=== PATIENT | female | born 1935 | race Caucasian/White ===

== ENCOUNTER 2020-06-27 13:38 | Emergency (ER) | payer MEDICARE, SELFPAY ==
--- NOTE | ~2020-06-27 | CT_ITS ---
EXAMINATION: CT ABDOMEN AND PELVIS WITHOUT CONTRAST CLINICAL INFORMATION: Diarrhea. Assess for colitis COMPARISON: None TECHNIQUE: Multidetector volumetric imaging was performed from the superior aspect of the liver through the pubic symphysis. Sagittal and coronal reformatted images were obtained on the technologist's workstation. This CT examination was performed using dose optimization techniques as appropriate, variously including the following: *Automated exposure control *Adjustment of mA and/or kV according to patient size (this includes techniques or standardized protocols for targeted exams where dose is matched to indication/reason for exam; i.e. extremities or head) *Use of iterative reconstruction technique DLP: 498 mGy-cm FINDINGS: LUNG BASES: Minor bibasilar scarring/discoid atelectasis. LIVER, GALLBLADDER, AND BILIARY TREE: The liver is normal in size, shape, and attenuation. No focal hepatic lesion or biliary ductal dilatation is present. Numerous gallstones without acute inflammatory changes. PANCREAS: There is a coarse calcification in the pancreatic parenchyma along the course of the main pancreatic duct measuring 11 mm. Duct distal to this is dilated. Atrophy of the pancreatic tissues. No discrete mass lesion. No inflammatory changes. SPLEEN: Unremarkable. ADRENAL GLANDS: Unremarkable. KIDNEYS AND URETERS: Multiple renal cortical cysts and nonobstructing stones. Largest left midpole kidney laterally measuring up to 5.5 cm. No hydronephrosis. BLADDER: Unremarkable. GASTROINTESTINAL TRACT: Distal sigmoid colon and rectum is collapsed but appears relatively thick walled which is nonspecific and may be related to colitis. Infiltrating lesion not excluded. No obstruction. ABDOMINAL WALL: No significant hernia is appreciated. LYMPH NODES: Normal. VASCULAR: Unremarkable. PELVIC VISCERA: Pelvic organs appear to be surgically absent. OSSEOUS STRUCTURES: Unremarkable. CT/CT abdomen pelvis wo con IMPRESSION: Findings of nonspecific colitis favored distal colon as above. Follow-up recommended to exclude an underlying lesion. Incidental findings as above.
--- NOTE | ~2020-06-27 | XR_ITS ---
EXAMINATION: XR CHEST CLINICAL INFORMATION: COVID COMPARISON: None TECHNIQUE: Frontal view of the chest was obtained. FINDINGS: Lungs are clear. No pleural effusion or pneumothorax. Normal heart size. Aorta is atherosclerotic. Calcified left breast implant. No acute or suspicious osseous abnormalities. XR/XR chest 1V IMPRESSION: No acute findings.
--- NOTE | 2020-06-27 13:48 | ED_ITS ---
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 stating she needed to get checked out, she takes clonazepam and has her Rx at home, she denies need for rehab MD Complaint: generalized weakness and lack of energy Onset (ago): week(s) (2) Duration: constant Location: generalized Migration: none Severity: mild Relieving factors: none Exacerbating factors: other (life stressors) Context: other (son is critically ill with COVID at [facility]) Associated symptoms: loss of appetite and other (diarrhea or loose stools when she does eat) Related Data Previous Rx's Medication Instructions Recorded simvastatin 40 mg tablet 40 mg PO BEDTIME #30 tab 06/15/20 meclizine 25 mg tablet 25 mg PO DAILY PRN #30 tab 06/21/20 Allergies Allergy/AdvReac Type Severity Reaction Status Date / Time Sulfa (Sulfonamide Allergy Unknown unknown Verified 02/16/20 12:33 Antibiotics) sulfamethoxazole Allergy Unknown ANGIOEDEMA Verified 02/16/20 12:33 [From BACTRIM] trimethoprim [From BACTRIM] Allergy Unknown ANGIOEDEMA Verified 02/16/20 12:33 Review of Systems Review of Systems: Constitutional : No Fever, No Chills, pos malaise ENT/Mouth : No Ear Pain, No Nasal Congestion, No sore throat Eyes: No Eye Pain, No Swelling, No Redness Cardiovascular : No Chest Pain, No SOB Respiratory : No Cough, No Sputum, No Dyspnea Gastrointestinal : No Nausea, No Vomiting, pos Diarrhea, No Hematochezia, No Melena Genitourinary : No Dysuria, No Urinary Frequency, No Hematuria Musculoskeletal : No Myalgias Skin : No Skin Lesions, No rash Neuro : No Weakness, No Numbness, No Paresthesias, No Dizziness, No Headache Psych : positive Anxiety, positive Depression, no SI/HI Heme/Lymph: No Lymphadenopathy Endocrine : No Polyuria, No Polydipsia All other systems reviewed and are negative [facility] Past Medical History Attestation statement: The following information was validated with the patient. Medical History Anxiety Dyslipidemia Orthostatic tremor Surgical History History of arthroscopy of knee History of breast implant History of cataract surgery History of eye surgery History of hysterectomy History of mastectomy History of parathyroid surgery History of tonsillectomy and adenoidectomy S/P thyroid biopsy Family History Family History (Updated 02/16/20 @ 12:49 by Kate Hu, RMA, CERTIFIED TECHNICIAN SPECIALIST) Father HTN (hypertension) Mother HTN (hypertension) Sister Breast cancer Son Bowel cancer Maternal Aunt Multiple sclerosis Paternal Aunt Diabetes mellitus Neuropathy Amputation leg, bilat Social History Social History (Updated 06/27/20 @ 13:59 by Alyssa Barker DO) Alcohol intake: never Smoking Status: Never smoker Use of substances other than those prescribed or required for medical reasons: No Advance Directives: Yes Advance Directives Information Provided: Yes Advance Directives on File: No Physical Exam Vital Signs: Vital Signs: Last Vital Signs Temp 98.5 F 06/27/20 14:05 Pulse 88 06/27/20 14:05 Resp 16 06/27/20 14:05 BP 177/73 H 06/27/20 14:05 Pulse Ox 93 06/27/20 14:05 Body Mass Index 25.6 Appearance: Alert. Oriented X3. No acute distress. Eyes: Pupils equal, round and reactive to light. ENT: Pharynx normal. Neck: Normal inspection. Neck supple. CVS: Normal heart rate and rhythm. Pulses normal. Respiratory: No respiratory distress. Breath sounds normal. Abdomen: Soft and nontender. Skin: Skin warm and dry. Normal skin color. Normal skin turgor. Extremities: No lower extremity edema. No calf ttp Neuro: Oriented X 3. No motor deficit. No sensory deficit. Course Course Course Narrative: + COVID, no hypoxia no respiratory distress likely caught COVID from son who was just diagnosed 9 days ago when he arrived to [facility] after an accident will replete Mag and PO potassium, gentle 1L of fluid over 1 hour anticipate possible DC from home once improved from resuscitation and lyte replacement no WBC count, no abdominal pain, doubt bacterial colitis will hold off on antibiotics at this time I think the patient has good resources at home and does not need CARE team signed out pending further workup, resuscitation and O2 ambulation trial MDM - Weakness MDM Narrative Medical decision making narrative: 84 yo female with recent significant life stressor regarding her son, family called due to concerns for anxiety, FTT not eating and having loose stools x 2 weeks, the patient states she is fine, she states it is just stress, labs CT scan for colitis, CARE team consult Lab Data Result diagrams: 06/27/20 14:25 06/27/20 14:25 Labs: Lab Results 06/27/20 06/27/20 06/27/20 Range/Units 14:25 14:25 14:25 WBC 2.8 L (4.8-10.8) X10*3/uL RBC 4.94 (4.20-5.50) X10*6/uL Hgb 13.9 (12.0-16.0) g/dl Hct 42.2 (37-47) % MCV 85.4 (80-98) fL MCH 28.1 (27.0-33.0) pg MCHC 32.9 (31.0-35.0) g/dl RDW 14.1 (11.0-16.0) % Plt Count 108 L (160-400) X10*3/uL MPV 11.2 (9.4-12.3) fL Immature Gran % (Auto) 0.0 (0.0-0.4) % Neut % (Auto) 78.2 H (45-73) % Lymph % (Auto) 16.2 L (20-40) % [place] % (Auto) 5.6 (2-11) % Eos % (Auto) 0.0 (0-4) % Baso % (Auto) 0.0 (0-2) % Lymph # (Auto) 0.5 L (1.2-4.9) X10*3/uL [place] # (Auto) 0.2 (0.1-1.2) X10*3/uL Eos # (Auto) 0.0 (0.0-0.4) X10*3/uL Baso # (Auto) 0.0 (0.0-0.2) X10*3/uL Abs Immat Gran (auto) 0.00 (0.00-0.03) X10*3/uL Absolute Neuts (auto) 2.2 (2.0-8.3) X10*3/uL Absolute Nucleated RBC 0.000 (0.0-0.012) X10*3/uL Nucleated RBC % (auto) 0.0 (0.0-0.2) /100WBC Smear Tech's Comments VERIFIED Hold Blue Top SEE NOTE Sodium 138 (135-145) mmol/L Potassium 3.0 L (3.3-5.1) mmol/L Chloride 101 (96-108) mmol/L Carbon Dioxide 24 (22-29) mmol/L Anion Gap 16 (12-20) BUN 26 H (9-16) mg/dL Creatinine 1.42 H (0.5-1.4) mg/dL Estim Creat Clear Calc 25.3 Estimated GFR 35 Random Glucose 101 (60-115) mg/dL Calcium 8.0 L (8.4-10.2) mg/dL Magnesium 1.5 L (1.6-2.6) mg/dL Total Bilirubin 0.8 (0.0-1.0) mg/dL Direct Bilirubin 0.3 (0.0-0.5) mg/dL AST 32 H (5-31) U/L ALT 15 (0-31) U/L Alkaline Phosphatase 67 (39-117) U/L Total Protein 6.6 (6.5-8.0) g/dL Albumin 3.7 (3.5-5.0) g/dL Lipase 34 (8-78) U/L COVID-19 (NEELAM) (Negative) COVID-19 Clin Com 06/27/20 Range/Units 14:25 WBC (4.8-10.8) X10*3/uL RBC (4.20-5.50) X10*6/uL Hgb (12.0-16.0) g/dl Hct (37-47) % MCV (80-98) fL MCH (27.0-33.0) pg MCHC (31.0-35.0) g/dl RDW (11.0-16.0) % Plt Count (160-400) X10*3/uL MPV (9.4-12.3) fL Immature Gran % (Auto) (0.0-0.4) % Neut % (Auto) (45-73) % Lymph % (Auto) (20-40) % [place] % (Auto) (2-11) % Eos % (Auto) (0-4) % Baso % (Auto) (0-2) % Lymph # (Auto) (1.2-4.9) X10*3/uL [place] # (Auto) (0.1-1.2) X10*3/uL Eos # (Auto) (0.0-0.4) X10*3/uL Baso # (Auto) (0.0-0.2) X10*3/uL Abs Immat Gran (auto) (0.00-0.03) X10*3/uL Absolute Neuts (auto) (2.0-8.3) X10*3/uL Absolute Nucleated RBC (0.0-0.012) X10*3/uL Nucleated RBC % (auto) (0.0-0.2) /100WBC Smear Tech's Comments Hold Blue Top Sodium (135-145) mmol/L Potassium (3.3-5.1) mmol/L Chloride (96-108) mmol/L Carbon Dioxide (22-29) mmol/L Anion Gap (12-20) BUN (9-16) mg/dL Creatinine (0.5-1.4) mg/dL Estim Creat Clear Calc Estimated GFR Random Glucose (60-115) mg/dL Calcium (8.4-10.2) mg/dL Magnesium (1.6-2.6) mg/dL Total Bilirubin (0.0-1.0) mg/dL Direct Bilirubin (0.0-0.5) mg/dL AST (5-31) U/L ALT (0-31) U/L Alkaline Phosphatase (39-117) U/L Total Protein (6.5-8.0) g/dL Albumin (3.5-5.0) g/dL Lipase (8-78) U/L COVID-19 (NEELAM) Positive A (Negative) COVID-19 Clin Com See Note Discharge Plan Discharge Clinical Impression: Hypomagnesemia, Acute hypokalemia, Acute renal insufficiency, COVID-19, Dehydration Instructions: Dehydration (ED), COVID-19 (Coronavirus Disease 2019) (ED) Additional Instructions: return to ED for any worsening symptoms or concerns replenished with gentle IVF as well as corrected her potassium and magnesium - have her kidney function rechecked in 2 days Prescriptions: No Action simvastatin 40 mg tablet 40 mg PO BEDTIME Qty: 30 RF: 1 meclizine 25 mg tablet 25 mg PO DAILY PRN (Reason: dizziness) Qty: 30 RF: 0 Referrals: Marsha Peña MD [Primary Care Provider] - 2 days
[2020-06-27 14:05] VITALS: BP 177/73; PULSE 88; RESP 16; TEMP 36.9; O2SAT 93; BMI 25.6
[2020-06-27 14:41] LABS: MANUAL DIFF FLAG SCAN; PLT CLUMP 1; SCAN SMEAR FLAG 1
[2020-06-27 14:43] LABS: Hematocrit 42.2 % (37-47); Hemoglobin 13.9 g/dl (12.0-16.0); Lymphocytes Absolute Auto 0.5 X10*3/uL (1.2-4.9); Lymphocytes Percent Auto 16.2 % (20-40); Mean Corpuscular HGB Conc 32.9 g/dl (31.0-35.0); Mean Corpuscular Hemoglobin 28.1 pg (27.0-33.0); Mean Corpuscular Volume 85.4 fL (80-98); Mean Platelet Volume 11.2 fL (9.4-12.3); Monocytes Absolute Auto 0.2 X10*3/uL (0.1-1.2); Monocytes Percent Auto 5.6 % (2-11); Neutrophils Absolute Auto 2.2 X10*3/uL (2.0-8.3); Neutrophils Percent Auto 78.2 % (45-73); Platelet Count 108 X10*3/uL (160-400); Red Blood Count 4.94 X10*6/uL (4.20-5.50); Red Cell Distribution Width 14.1 % (11.0-16.0); White Blood Count 2.8 X10*3/uL (4.8-10.8)
[2020-06-27 14:56] LABS: COVID-19 Test Positive (Negative)
[2020-06-27 15:07] LABS: Alanine Aminotransferase 15 U/L (0-31); Albumin Level 3.7 g/dL (3.5-5.0); Alkaline Phosphatase 67 U/L (39-117); Anion Gap 16 (12-20); Aspartate Amino Transferase 32 U/L (5-31); Bilirubin Direct 0.3 mg/dL (0.0-0.5); Bilirubin Total 0.8 mg/dL (0.0-1.0); Blood Urea Nitrogen 26 mg/dL (9-16); Carbon Dioxide 24 mmol/L (22-29); Chloride 101 mmol/L (96-108); Creatinine Clr Calc Pharmacy 25.3; Estimated Glomerular Filt Rate 35; Glucose Random 101 mg/dL (60-115); Lipase 34 U/L (8-78); Magnesium 1.5 mg/dL (1.6-2.6); Sodium 138 mmol/L (135-145); Total Protein 6.6 g/dL (6.5-8.0)
[2020-06-27 15:10] LABS: SLIDE REVIEW VERIFIED
[2020-06-27] MEDS: 0.9 % Sodium Chloride 1,000 ML 999 ML IVCONT (15:39)
[2020-06-27] MEDS: Potassium Chloride ER 20 MEQ TAB.ER.PRT 40 MEQ PO (15:40)
[2020-06-27] MEDS: Magnesium Sulfate/H2O 2 GM/50 ML PIGGYBACK IV (15:40)
--- NOTE | 2020-06-27 17:06 | MHC.CARE ---
CARE team consult placed for pt whose family had concerns that pt was failing to thrive. Come to find out, pt is covid-19 positive, and would explain the concern re: pt's presentation. Discussed with ED provider who agreed that a consult is not necessary at this time. CARE team available for support if needed.
[2020-06-27 18:00] VITALS: O2SAT 95
[2020-06-27 19:00] LABS: Glucose Urine UA NEG (NEG); Leukocyte Esterase Urine 1+ (NEG); Nitrite Urine POS (NEG); PH 5.5 (5.0-8.0); Specific Gravity - Urine 1.025 (1.005-1.025); UACC Culture Trigger YES; Urine Blood 1+ (NEG); Urine Ketones NEG (NEG); Urine Protein TRACE MG/DL (NEG-TRACE)
--- NOTE | 2020-06-27 19:01 | PC.NURSE ---
Pt ambulated to bathroom with assistance, very weak, unsteady on feet. Spo2 stayed in 93-95% range. Pt had diarrhea in bathroom after providing urine sample. aware. Will continue to monitor.
[2020-06-27 19:04] LABS: Appearance Urine HAZY; Color Urine YELLOW
[2020-06-27 19:19] LABS: Bacteria Urine 4+ /LPF; RBC Urine 0-2 /HPF (0); Squamous Epithelial Cell Urine 1+ /LPF
--- NOTE | 2020-06-27 19:25 | PC.NURSE ---
SPOKE WITH DAUGHTER ROQUE. WILLING TO TAKE PATIENT TO HER HOUSE IF SHE IS WILLING TO GO. DISCUSSED WITH PATIENT THE OPTIONS AND IS WILLING TO GO TO DAUGHTERS HOUSE. DR ALCARAZ AWARE.
[2020-06-27 20:27] LABS: Lactic Acid 1.3 mmol/L (0.5-2.0)
[2020-06-27] MEDS: cefTRIAXone sodium 1 GM in 0.9 % Sodium Chloride 50 ML IV (20:29)
--- NOTE | 2020-06-27 20:48 | ED.GENADULT ---
HPI - General Adult General Chief complaint: General Medical Stated complaint: failure to thrive Time Seen by Provider: 06/27/20 13:45 Source: patient and EMS Mode of arrival: EMS Limitations: no limitations Related Data Home Medications Medication Instructions Recorded Confirmed amlodipine 10 mg PO DAILY 06/30/20 06/30/20 clonazepam 0.25 mg PO BID 06/30/20 06/30/20 metoprolol succinate 100 mg PO DAILY 06/30/20 06/30/20 Previous Rx's Medication Instructions Recorded simvastatin 40 mg tablet 40 mg PO BEDTIME #30 tab 06/15/20 meclizine 25 mg tablet 25 mg PO DAILY PRN #30 tab 06/21/20 loperamide [Imodium A-D] 2 mg PO Q8H PRN #20 tab 06/27/20 Allergies Allergy/AdvReac Type Severity Reaction Status Date / Time Sulfa (Sulfonamide Allergy Unknown unknown Verified 06/30/20 17:02 Antibiotics) sulfamethoxazole Allergy Unknown ANGIOEDEMA Verified 06/30/20 17:02 [From BACTRIM] trimethoprim [From BACTRIM] Allergy Unknown ANGIOEDEMA Verified 06/30/20 17:02 [facility] Past Medical History Medical History (Updated 07/14/20 @ 00:01 by Terrie Crowley) Anxiety Dyslipidemia Orthostatic tremor Toxic encephalopathy Surgical History History of arthroscopy of knee History of breast implant History of cataract surgery History of eye surgery History of hysterectomy History of mastectomy History of parathyroid surgery History of tonsillectomy and adenoidectomy S/P thyroid biopsy Family History Family History Father HTN (hypertension) Mother HTN (hypertension) Sister Breast cancer Son Bowel cancer Maternal Aunt Multiple sclerosis Paternal Aunt Diabetes mellitus Neuropathy Amputation leg, bilat Social History Social History Household Members: Family Housing: House Do you presently have visiting nurse or other home services: No Alcohol intake: never Second Hand Smoke Exposure: No service: No Current occupational status: retired Physical Exam Vital Signs: Vital Signs: Last Vital Signs Temp 98.5 F 06/27/20 14:05 Pulse 88 06/27/20 14:05 Resp 16 06/27/20 14:05 BP 177/73 H 06/27/20 14:05 Pulse Ox 95 06/27/20 18:00 Body Mass Index 25.6 Medical Decision Making Lab Data Result diagrams: 06/27/20 14:25 06/27/20 14:25 Labs: Lab Results 06/27/20 06/27/20 06/27/20 Range/Units 14:25 14:25 14:25 WBC 2.8 L (4.8-10.8) X10*3/uL RBC 4.94 (4.20-5.50) X10*6/uL Hgb 13.9 (12.0-16.0) g/dl Hct 42.2 (37-47) % MCV 85.4 (80-98) fL MCH 28.1 (27.0-33.0) pg MCHC 32.9 (31.0-35.0) g/dl RDW 14.1 (11.0-16.0) % Plt Count 108 L (160-400) X10*3/uL MPV 11.2 (9.4-12.3) fL Immature Gran % (Auto) 0.0 (0.0-0.4) % Neut % (Auto) 78.2 H (45-73) % Lymph % (Auto) 16.2 L (20-40) % [place] % (Auto) 5.6 (2-11) % Eos % (Auto) 0.0 (0-4) % Baso % (Auto) 0.0 (0-2) % Lymph # (Auto) 0.5 L (1.2-4.9) X10*3/uL [place] # (Auto) 0.2 (0.1-1.2) X10*3/uL Eos # (Auto) 0.0 (0.0-0.4) X10*3/uL Baso # (Auto) 0.0 (0.0-0.2) X10*3/uL Abs Immat Gran (auto) 0.00 (0.00-0.03) X10*3/uL Absolute Neuts (auto) 2.2 (2.0-8.3) X10*3/uL Absolute Nucleated RBC 0.000 (0.0-0.012) X10*3/uL Nucleated RBC % (auto) 0.0 (0.0-0.2) /100WBC Smear Tech's Comments VERIFIED Hold Blue Top SEE NOTE Sodium 138 (135-145) mmol/L Potassium 3.0 L (3.3-5.1) mmol/L Chloride 101 (96-108) mmol/L Carbon Dioxide 24 (22-29) mmol/L Anion Gap 16 (12-20) BUN 26 H (9-16) mg/dL Creatinine 1.42 H (0.5-1.4) mg/dL Estim Creat Clear Calc 25.3 Estimated GFR 35 Random Glucose 101 (60-115) mg/dL Lactic Acid (0.5-2.0) mmol/L Calcium 8.0 L (8.4-10.2) mg/dL Magnesium 1.5 L (1.6-2.6) mg/dL Total Bilirubin 0.8 (0.0-1.0) mg/dL Direct Bilirubin 0.3 (0.0-0.5) mg/dL AST 32 H (5-31) U/L ALT 15 (0-31) U/L Alkaline Phosphatase 67 (39-117) U/L Total Protein 6.6 (6.5-8.0) g/dL Albumin 3.7 (3.5-5.0) g/dL Lipase 34 (8-78) U/L Urine Color Urine Appearance Urine pH (5.0-8.0) Ur Specific [place] (1.005-1.025) Urine Protein (NEG-TRACE) MG/DL Urine Glucose (UA) (NEG) MG/DL Urine Ketones (NEG) MG/DL Urine Blood (NEG) Urine Nitrite (NEG) Ur Leukocyte Esterase (NEG) Urine RBC (0) /HPF Urine WBC (0-4) /HPF Ur Squamous Epith Cells /LPF Urine Bacteria /LPF COVID-19 (NEELAM) (Negative) COVID-19 Clin Com 06/27/20 06/27/20 06/27/20 Range/Units 14:25 18:45 19:47 WBC (4.8-10.8) X10*3/uL RBC (4.20-5.50) X10*6/uL Hgb (12.0-16.0) g/dl Hct (37-47) % MCV (80-98) fL MCH (27.0-33.0) pg MCHC (31.0-35.0) g/dl RDW (11.0-16.0) % Plt Count (160-400) X10*3/uL MPV (9.4-12.3) fL Immature Gran % (Auto) (0.0-0.4) % Neut % (Auto) (45-73) % Lymph % (Auto) (20-40) % [place] % (Auto) (2-11) % Eos % (Auto) (0-4) % Baso % (Auto) (0-2) % Lymph # (Auto) (1.2-4.9) X10*3/uL [place] # (Auto) (0.1-1.2) X10*3/uL Eos # (Auto) (0.0-0.4) X10*3/uL Baso # (Auto) (0.0-0.2) X10*3/uL Abs Immat Gran (auto) (0.00-0.03) X10*3/uL Absolute Neuts (auto) (2.0-8.3) X10*3/uL Absolute Nucleated RBC (0.0-0.012) X10*3/uL Nucleated RBC % (auto) (0.0-0.2) /100WBC Smear Tech's Comments Hold Blue Top Sodium (135-145) mmol/L Potassium (3.3-5.1) mmol/L Chloride (96-108) mmol/L Carbon Dioxide (22-29) mmol/L Anion Gap (12-20) BUN (9-16) mg/dL Creatinine (0.5-1.4) mg/dL Estim Creat Clear Calc Estimated GFR Random Glucose (60-115) mg/dL Lactic Acid 1.3 (0.5-2.0) mmol/L Calcium (8.4-10.2) mg/dL Magnesium (1.6-2.6) mg/dL Total Bilirubin (0.0-1.0) mg/dL Direct Bilirubin (0.0-0.5) mg/dL AST (5-31) U/L ALT (0-31) U/L Alkaline Phosphatase (39-117) U/L Total Protein (6.5-8.0) g/dL Albumin (3.5-5.0) g/dL Lipase (8-78) U/L Urine Color YELLOW Urine Appearance HAZY Urine pH 5.5 (5.0-8.0) Ur Specific [place] 1.025 (1.005-1.025) Urine Protein TRACE (NEG-TRACE) MG/DL Urine Glucose (UA) NEG (NEG) MG/DL Urine Ketones NEG (NEG) MG/DL Urine Blood 1+ H (NEG) Urine Nitrite POS H (NEG) Ur Leukocyte Esterase 1+ H (NEG) Urine RBC 0-2 (0) /HPF Urine WBC 15-29 H (0-4) /HPF Ur Squamous Epith Cells 1+ /LPF Urine Bacteria 4+ /LPF COVID-19 (NEELAM) Positive A (Negative) COVID-19 Clin Com See Note Discharge Plan Discharge Clinical Impression: Hypomagnesemia, Acute hypokalemia, Acute renal insufficiency, COVID-19, Dehydration, Acute UTI, Chronic diarrhea Patient Disposition: Home, Self-Care Instructions: Dehydration (ED), COVID-19 (Coronavirus Disease 2019) (ED) Additional Instructions: return to ED for any worsening symptoms or concerns or increase Short of Breath Take antibiotic as prescribed for UTI Take Imodium after every loose bowel movement maximum not more than 3 tablets a day Drink plenty of fluids - have her kidney function rechecked in 2 days Prescriptions: New loperamide [Imodium A-D] 2 mg tablet 2 mg PO Q8H PRN (Reason: loose stool) Qty: 20 RF: 0 No Action simvastatin 40 mg tablet 40 mg PO BEDTIME Qty: 30 RF: 1 meclizine 25 mg tablet 25 mg PO DAILY PRN (Reason: dizziness) Qty: 30 RF: 0 metoprolol succinate 100 mg Tablet Extended Release 24 Hr 100 mg PO DAILY RF: 0 amlodipine 10 mg Tablet 10 mg PO DAILY RF: 0 clonazepam 0.25 mg Tablet,Disintegrating 0.25 mg PO BID RF: 0 Referrals: Marsha Peña MD [Primary Care Provider] - 2 days Interventions: ED Discharge Assessment Last Done: 06/27/20 23:02 Discharge Date/Time: 06/27/20 23:03
--- NOTE | 2020-06-27 20:54 | PC.NURSE ---
CALLED DAUGHTER LEFT MESSAGE FOR DISCHARGE.
== END 2020-06-27 23:03 | disposition home or self-care (01) ==
PROVIDERS: Internal Medicine; Emergency Provider Emergency Medicine; PCP Internal Medicine
DX: U07.1 COVID-19 (principal); R62.7 Adult failure to thrive; E83.42 Hypomagnesemia; E87.6 Hypokalemia; N28.9 Disorder of kidney and ureter, unspecified; E86.0 Dehydration; Z79.899 Other long term (current) drug therapy
CPT/HCPCS: 36415; 71045; 74176; 80048; 80076; 81001; 81003; 83605; 83690; 83735; 85025; 87040; 87086; 87088; 87186; 87635; 96360; 96361; 99284; 99285; J0696; J3475

== ENCOUNTER 2020-06-30 16:33 | Inpatient (IN) | payer MEDICARE, SELFPAY ==
--- NOTE | ~2020-06-30 | CT_ITS ---
EXAMINATION: CT HEAD WITHOUT CONTRAST CLINICAL INFORMATION: Confusion. COMPARISON: None available. TECHNIQUE: Contiguous axial imaging was performed from the skull base to vertex without intravenous administration of contrast. This CT examination was performed using dose optimization techniques as appropriate, variously including the following: *Automated exposure control. *Adjustment of mA and/or kV according to patient size (this includes techniques or standardized protocols for targeted exams where dose is matched to indication/reason for exam; i.e. extremities or head). *Use of iterative reconstruction technique. DLP: 638 mGy-cm FINDINGS: There is no evidence of acute intracranial hemorrhage or edematous territorial infarction. Confluent hypoattenuation in the periventricular and deep white matter. Turner-white matter differentiation is preserved. The ventricles are normal in size and configuration. No evidence for obstructive hydrocephalus. No abnormal mass effect or midline shift. No extra-axial fluid collections. Calcific atherosclerotic disease of the intracranial internal carotid and vertebral arteries. No hyperdense vessel sign. No acute soft tissue or osseous abnormalities. Mild mucosal thickening of the paranasal sinuses. The mastoid air cells and middle ear cavities are clear. Bilateral lens extractions. CT/CT head/brain wo con IMPRESSION: 1. No evidence of acute intracranial hemorrhage or edematous territorial infarction. 2. 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
--- NOTE | ~2020-06-30 | CT_ITS ---
EXAMINATION: CT ABDOMEN AND PELVIS WITHOUT CONTRAST CLINICAL INFORMATION: Abdominal pain COMPARISON: June 27, 2020 TECHNIQUE: Multidetector volumetric imaging was performed from the superior aspect of the liver through the pubic symphysis. Sagittal and coronal reformatted images were obtained on the technologist's workstation. This CT examination was performed using dose optimization techniques as appropriate, variously including the following: *Automated exposure control *Adjustment of mA and/or kV according to patient size (this includes techniques or standardized protocols for targeted exams where dose is matched to indication/reason for exam; i.e. extremities or head) *Use of iterative reconstruction technique DLP: 682 mGy-cm FINDINGS: LUNG BASES: There is breathing artifact present limiting evaluation. There is bibasilar disease present which may be related to atelectasis however pneumonitis cannot be excluded. Disease may be acute or chronic. No pleural or pericardial effusion. Aortic and mitral annulus calcification seen as well as coronary artery calcification. Left breast implant noted with calcified capsule. LIVER, GALLBLADDER, AND BILIARY TREE: The liver is normal in size, shape, and attenuation. No focal hepatic lesion or biliary ductal dilatation is present. Cholelithiasis is noted without evidence of acute cholecystitis. PANCREAS: Unremarkable. SPLEEN: Unremarkable. ADRENAL GLANDS: Unremarkable. KIDNEYS AND URETERS: There are bilateral renal cysts present largest within the left kidney measuring 5.2 cm in diameter. No obstructive uropathy. A few renal calculi are seen but which appear to be vascular in nature. BLADDER: Distended and unremarkable. GASTROINTESTINAL TRACT: No dilated loops of large or small bowel are evident. No free air or free fluid is seen. No definite colonic wall thickening is appreciated no significant pericolonic inflammatory streaking is seen however there is motion artifact present which can obscure this. ABDOMINAL WALL: No significant hernia is appreciated. LYMPH NODES: No lymphadenopathy appreciated. VASCULAR: There is prominent aortoiliac calcified plaque present as well as calcification of the visceral vessels. No abdominal aortic aneurysm. PELVIC VISCERA: Unremarkable. OSSEOUS STRUCTURES: There is osteopenia visualized bones. No suspicious destructive bony lesion identified. CT/CT abdomen pelvis wo con IMPRESSION: Bibasilar lung disease which may be acute or chronic. Cholelithiasis without evidence of acute cholecystitis. No evidence of ileus or obstruction of bowel. No free air or free fluid. No definite evidence of colitis however there is motion artifact present which limits this evaluation.
--- NOTE | ~2020-06-30 | CT_ITS ---
EXAMINATION: CT ANGIOGRAM OF THE CHEST WITH AND WITHOUT CONTRAST (CT PULMONARY ANGIOGRAM FOR PE) CLINICAL INFORMATION: Reason for Exam covid 19 with hypoxia COMPARISON: Chest x-ray earlier today TECHNIQUE: Prior to contrast administration, noncontrast localization images were obtained. Subsequently, multidetector volumetric imaging was performed from the thoracic inlet to below the diaphragms following the administration of 54 mL Omnipaque 350 intravenous contrast. No contrast reaction reported Sagittal, coronal, and MIP oblique sagittal reformatted images were obtained on the CT workstation, uploaded to PACS, and reviewed. This CT examination was performed using dose optimization techniques as appropriate, variously including the following: *Automated exposure control *Adjustment of mA and/or kV according to patient size (this includes techniques or standardized protocols for targeted exams where dose is matched to indication/reason for exam; i.e. extremities or head) *Use of iterative reconstruction technique Total exam dose-length product 220 mGy-cm FINDINGS: The heart is normal in size. Coronary artery calcifications are present. No pericardial effusion. No pulmonary arterial filling defect to suggest pulmonary embolus. Nonaneurysmal thoracic aorta which demonstrates severe calcified and noncalcified disease. No gross mediastinal lymphadenopathy. Left thyroid nodule. Partially visualized peripherally calcified left breast prosthesis. The right breast is surgically absent. Central airways are patent. Lungs are adequately aerated. Mild to moderate emphysematous changes are noted. There are scattered subpleural reticular and groundglass densities noted particularly within the lower lobes. Dependent atelectasis is also appreciated. No pleural effusion or pneumothorax. No large focal mass. Visualized portion of the upper abdomen are grossly unremarkable. Diffuse osteopenia with scoliotic and severe degenerative changes of the spine. CT/CT angio chest PE protocol IMPRESSION: -No pulmonary embolism. -Lung findings consistent with Covid pneumonia. VTE: negative
--- NOTE | ~2020-06-30 | XR_ITS ---
EXAMINATION: XR CHEST CLINICAL INFORMATION: Covid positive COMPARISON: Chest x-ray 06/27/2020 TECHNIQUE: Frontal portable view of the chest was obtained. 5:27 PM FINDINGS: Elevated right diaphragm compared to left. Linear atelectasis above the right diaphragm. Gas filled colonic hepatic flexure under the right diaphragm. Partially calcified left breast implant. Heart size is prominent. There are calcifications of thoracic aorta. No pulmonary vascular congestion. No focal consolidation. Multilevel degenerative spondylosis spine. There is degenerative change of the acromioclavicular joints of both shoulders. XR/XR chest 1V IMPRESSION: No acute change of chest.
--- NOTE | 2020-06-30 08:30 | ECG_ITS ---
Test Reason : HYPOXIA Blood Pressure : / mmHG Vent. Rate : 085 BPM Atrial Rate : 085 BPM P-R Int : 146 ms QRS Dur : 120 ms QT Int : 420 ms P-R-T Axes : 082 -33 003 degrees QTc Int : 499 ms Sinus rhythm with occasional Premature ventricular complexes Left axis deviation Right bundle branch block Minimal voltage criteria for LVH, may be normal variant Abnormal ECG No previous ECGs available Referred By: Gibson Sampson Electronically Signed By:Pio Ledesma
[2020-06-30 16:43] VITALS: BP 160/88; BP 186/74; PULSE 69; PULSE 89; RESP 16; TEMP 38.6; O2SAT 85; O2SAT 92; BMI 19.2
--- NOTE | 2020-06-30 16:48 | ED_ITS ---
HPI - General Adult General Chief complaint: Fever Stated complaint: RT EAR PAIN,+COVID Time Seen by Provider: 06/30/20 16:47 Source: patient and EMS Mode of arrival: EMS Limitations: no limitations History of Present Illness HPI narrative: Patient with hx of hypertension anxiety was seen here on 06/27 for weakness was positive for COVID also had slight UTI discharged on Ceftin comes back for nonspecific complaints complaining of chronic left ear pain than saying that her primary care doctor sent her here on arrival she was saturating 89% at room air .patient denies any shortness of breath or cough patient took only 1 dose of Ceftin at home. But received 1 g of Rocephin in the ER on 06/27 patient slightly confused looks weak per family patient is not eating and sleeping all the time Related Data Home Medications Medication Instructions Recorded Confirmed amlodipine 10 mg PO DAILY 06/30/20 06/30/20 clonazepam 0.25 mg PO BID 06/30/20 06/30/20 metoprolol succinate 100 mg PO DAILY 06/30/20 06/30/20 Previous Rx's Medication Instructions Recorded simvastatin 40 mg tablet 40 mg PO BEDTIME #30 tab 06/15/20 meclizine 25 mg tablet 25 mg PO DAILY PRN #30 tab 06/21/20 cefuroxime axetil 500 mg PO BID 10 Days #20 tab 06/27/20 loperamide [Imodium A-D] 2 mg PO Q8H PRN #20 tab 06/27/20 Allergies Allergy/AdvReac Type Severity Reaction Status Date / Time Sulfa (Sulfonamide Allergy Unknown unknown Verified 06/30/20 17:02 Antibiotics) sulfamethoxazole Allergy Unknown ANGIOEDEMA Verified 06/30/20 17:02 [From BACTRIM] trimethoprim [From BACTRIM] Allergy Unknown ANGIOEDEMA Verified 06/30/20 17:02 Review of Systems Review of Systems: Constitutional : No Weight loss, No Fever, No Chills ENT/Mouth : No sore throat, No Rhinorrhea Eyes: No Eye Pain, No Swelling Cardiovascular : No Chest Pain, no palpitations Respiratory : No Cough, No Sputum, no shortness of breath Gastrointestinal : no Nausea, No Vomiting, No Diarrhea, No abdominal Pain, no black stools Genitourinary : No Dysuria, No Urinary Frequency Musculoskeletal : No joint pain, No Myalgias, No Joint Swelling Skin : No Skin Lesions, No rash Neuro : ++Weakness, No Numbness, No Dizziness, No Headache Psych : No Anxiety/Panic, No Depression Heme/Lymph: No Bruising, No Lymphadenopathy Endocrine : No Polyuria, No Polydipsia All other systems reviewed and are negative PMFSH Past Medical History Medical History Anxiety Dyslipidemia Orthostatic tremor Surgical History History of arthroscopy of knee History of breast implant History of cataract surgery History of eye surgery History of hysterectomy History of mastectomy History of parathyroid surgery History of tonsillectomy and adenoidectomy S/P thyroid biopsy Family History Family History Father HTN (hypertension) Mother HTN (hypertension) Sister Breast cancer Son Bowel cancer Maternal Aunt Multiple sclerosis Paternal Aunt Diabetes mellitus Neuropathy Amputation leg, bilat Social History Social History Alcohol intake: never Smoking Status: Never smoker Advance Directives: No Advance Directives Information Provided: Yes Physical Exam Vital Signs: Vital Signs: Last Vital Signs Temp 98.8 F 06/30/20 21:49 Pulse 72 06/30/20 21:49 Resp 27 H 06/30/20 21:49 BP 128/45 L 06/30/20 21:49 Pulse Ox 99 06/30/20 21:49 Body Mass Index 19.2 Appearance: Alert. Oriented X2. No acute distress. Eyes: Pupils equal, round and reactive to light. ENT: Pharynx normal. Mucosal growth on lower gum area. EAC normal both sides, tympanic membrane intact bilateral Neck: Normal inspection. Neck supple. CVS: Normal heart rate and rhythm. Pulses normal. Respiratory: No respiratory distress. Breath sounds normal. Abdomen: Soft and nontender. Bowel sounds are present, no mass palpable, no CVA tenderness Skin: Skin warm and dry. Normal skin color. Normal skin turgor. Extremities: No lower extremity edema. Neuro: Oriented X 2. No motor deficit. No sensory deficit. Medical Decision Making MDM Narrative Medical decision making narrative: Patient with COVID-19 with increased weakness and hypoxia improved on nasal oxygen. CTA chest done which was negative for PE but showed bilateral lung infiltrates suggestive of COVID pneumonia. Patient has elevated L inflammatory marker started on Decadron and Rocephin will admit patient for COVID-19 pneumonia with hypoxia Lab Data Lab results reviewed: Yes I reviewed the patient's lab results. Result diagrams: 06/30/20 17:27 06/30/20 18:38 Labs: Lab Results 06/30/20 06/30/20 06/30/20 Range/Units 17:27 17:27 17:28 WBC 3.5 L (4.8-10.8) X10*3/uL RBC 5.08 (4.20-5.50) X10*6/uL Hgb 14.0 (12.0-16.0) g/dl Hct 43.1 (37-47) % MCV 84.8 (80-98) fL MCH 27.6 (27.0-33.0) pg MCHC 32.5 (31.0-35.0) g/dl RDW 13.9 (11.0-16.0) % Plt Count 192 D (160-400) X10*3/uL MPV 11.1 (9.4-12.3) fL Immature Gran % (Auto) 0.9 H (0.0-0.4) % Neut % (Auto) 80.1 H (45-73) % Lymph % (Auto) 12.4 L (20-40) % [place] % (Auto) 6.3 (2-11) % Eos % (Auto) 0.0 (0-4) % Baso % (Auto) 0.3 (0-2) % Lymph # (Auto) 0.4 L (1.2-4.9) X10*3/uL [place] # (Auto) 0.2 (0.1-1.2) X10*3/uL Eos # (Auto) 0.0 (0.0-0.4) X10*3/uL Baso # (Auto) 0.0 (0.0-0.2) X10*3/uL Abs Immat Gran (auto) 0.03 (0.00-0.03) X10*3/uL Absolute Neuts (auto) 2.8 (2.0-8.3) X10*3/uL Absolute Nucleated RBC 0.000 (0.0-0.012) X10*3/uL Nucleated RBC % (auto) 0.0 (0.0-0.2) /100WBC Smear Tech's Comments VERIFIED PT (10.8-13.0) SEC INR (0.9-1.1) APTT (24.1-38.0) SEC D-Dimer NG/ML Sodium (135-145) mmol/L Potassium (3.3-5.1) mmol/L Chloride (96-108) mmol/L Carbon Dioxide (22-29) mmol/L Anion Gap (12-20) BUN (9-16) mg/dL Creatinine (0.5-1.4) mg/dL Estim Creat Clear Calc Estimated GFR Random Glucose (60-115) mg/dL Lactic Acid 1.4 (0.5-2.0) mmol/L Calcium (8.4-10.2) mg/dL Magnesium Cancelled Lactate Dehydrogenase (122-220) U/L Urine Color Urine Appearance Urine pH (5.0-8.0) Ur Specific [place] (1.005-1.025) Urine Protein (NEG-TRACE) MG/DL Urine Glucose (UA) (NEG) MG/DL Urine Ketones (NEG) MG/DL Urine Blood (NEG) Urine Nitrite (NEG) Ur Leukocyte Esterase (NEG) Urine RBC (0) /HPF Urine WBC (0-4) /HPF Ur Squamous Epith Cells /LPF Urine Bacteria /LPF COVID-19 (NEELAM) (Negative) COVID-19 Clin Com 06/30/20 06/30/20 06/30/20 Range/Units 18:38 18:38 18:38 WBC (4.8-10.8) X10*3/uL RBC (4.20-5.50) X10*6/uL Hgb (12.0-16.0) g/dl Hct (37-47) % MCV (80-98) fL MCH (27.0-33.0) pg MCHC (31.0-35.0) g/dl RDW (11.0-16.0) % Plt Count (160-400) X10*3/uL MPV (9.4-12.3) fL Immature Gran % (Auto) (0.0-0.4) % Neut % (Auto) (45-73) % Lymph % (Auto) (20-40) % [place] % (Auto) (2-11) % Eos % (Auto) (0-4) % Baso % (Auto) (0-2) % Lymph # (Auto) (1.2-4.9) X10*3/uL [place] # (Auto) (0.1-1.2) X10*3/uL Eos # (Auto) (0.0-0.4) X10*3/uL Baso # (Auto) (0.0-0.2) X10*3/uL Abs Immat Gran (auto) (0.00-0.03) X10*3/uL Absolute Neuts (auto) (2.0-8.3) X10*3/uL Absolute Nucleated RBC (0.0-0.012) X10*3/uL Nucleated RBC % (auto) (0.0-0.2) /100WBC Smear Tech's Comments PT 12.8 (10.8-13.0) SEC INR 1.1 (0.9-1.1) APTT 40.9 H (24.1-38.0) SEC D-Dimer 730 NG/ML Sodium 137 (135-145) mmol/L Potassium 3.7 D (3.3-5.1) mmol/L Chloride 102 (96-108) mmol/L Carbon Dioxide 21 L (22-29) mmol/L Anion Gap 18 (12-20) BUN 30 H (9-16) mg/dL Creatinine 0.92 (0.5-1.4) mg/dL Estim Creat Clear Calc 33.6 Estimated GFR 58 Random Glucose 90 (60-115) mg/dL Lactic Acid (0.5-2.0) mmol/L Calcium 8.3 L (8.4-10.2) mg/dL Magnesium 1.7 Lactate Dehydrogenase 303 H (122-220) U/L Urine Color YELLOW Urine Appearance CLEAR Urine pH 6.0 (5.0-8.0) Ur Specific [place] 1.025 (1.005-1.025) Urine Protein TRACE (NEG-TRACE) MG/DL Urine Glucose (UA) NEG (NEG) MG/DL Urine Ketones 5 (NEG) MG/DL Urine Blood TRACE (NEG) Urine Nitrite NEG (NEG) Ur Leukocyte Esterase NEG (NEG) Urine RBC 0-2 (0) /HPF Urine WBC 0-2 (0-4) /HPF Ur Squamous Epith Cells TRACE /LPF Urine Bacteria NONE /LPF COVID-19 (NEELAM) (Negative) COVID-19 Clin Com 06/30/20 Range/Units 21:52 WBC (4.8-10.8) X10*3/uL RBC (4.20-5.50) X10*6/uL Hgb (12.0-16.0) g/dl Hct (37-47) % MCV (80-98) fL MCH (27.0-33.0) pg MCHC (31.0-35.0) g/dl RDW (11.0-16.0) % Plt Count (160-400) X10*3/uL MPV (9.4-12.3) fL Immature Gran % (Auto) (0.0-0.4) % Neut % (Auto) (45-73) % Lymph % (Auto) (20-40) % [place] % (Auto) (2-11) % Eos % (Auto) (0-4) % Baso % (Auto) (0-2) % Lymph # (Auto) (1.2-4.9) X10*3/uL [place] # (Auto) (0.1-1.2) X10*3/uL Eos # (Auto) (0.0-0.4) X10*3/uL Baso # (Auto) (0.0-0.2) X10*3/uL Abs Immat Gran (auto) (0.00-0.03) X10*3/uL Absolute Neuts (auto) (2.0-8.3) X10*3/uL Absolute Nucleated RBC (0.0-0.012) X10*3/uL Nucleated RBC % (auto) (0.0-0.2) /100WBC Smear Tech's Comments PT (10.8-13.0) SEC INR (0.9-1.1) APTT (24.1-38.0) SEC D-Dimer NG/ML Sodium (135-145) mmol/L Potassium (3.3-5.1) mmol/L Chloride (96-108) mmol/L Carbon Dioxide (22-29) mmol/L Anion Gap (12-20) BUN (9-16) mg/dL Creatinine (0.5-1.4) mg/dL Estim Creat Clear Calc Estimated GFR Random Glucose (60-115) mg/dL Lactic Acid (0.5-2.0) mmol/L Calcium (8.4-10.2) mg/dL Magnesium Lactate Dehydrogenase (122-220) U/L Urine Color Urine Appearance Urine pH (5.0-8.0) Ur Specific [place] (1.005-1.025) Urine Protein (NEG-TRACE) MG/DL Urine Glucose (UA) (NEG) MG/DL Urine Ketones (NEG) MG/DL Urine Blood (NEG) Urine Nitrite (NEG) Ur Leukocyte Esterase (NEG) Urine RBC (0) /HPF Urine WBC (0-4) /HPF Ur Squamous Epith Cells /LPF Urine Bacteria /LPF COVID-19 (NEELAM) Positive A (Negative) COVID-19 Clin Com See Note Imaging Data CT scan - chest: Attestation: I personally reviewed and interpreted this imaging study as follows: Radiologist's impression: [address] [id number] Scan ReportSigned Patient: Luis Galeana#: [id number]: 5Acct:[id number]/Sex: 84 / FADM Date: 06/30/20Loc: [facility] Dr: Ordering Physician: Gibson Sampson MD Date of Service: 06/30/20 Procedure(s): CT angio chest PE protocol Accession Number(s): [id number] cc: Gibson Sampson MD~ EXAMINATION: CT ANGIOGRAM OF THE CHEST WITH AND WITHOUT CONTRAST (CT PULMONARY ANGIOGRAM FOR PE) CLINICAL INFORMATION: Reason for Exam covid 19 with hypoxia COMPARISON: Chest x-ray earlier today TECHNIQUE: Prior to contrast administration, noncontrast localization images were obtained. Subsequently, multidetector volumetric imaging was performed from the thoracic inlet to below the diaphragms following the administration of 54 mL Omnipaque 350 intravenous contrast. No contrast reaction reported Sagittal, coronal, and MIP oblique sagittal reformatted images were obtained on the CT workstation, uploaded to PACS, and reviewed. This CT examination was performed using dose optimization techniques as appropriate, variously including the following: *Automated exposure control *Adjustment of mA and/or kV according to patient size (this includes techniques or standardized protocols for targeted exams where dose is matched to indication/reason for exam; i.e. extremities or head) *Use of iterative reconstruction technique Total exam dose-length product 220 mGy-cm FINDINGS: The heart is normal in size. Coronary artery calcifications are present. No pericardial effusion. No pulmonary arterial filling defect to suggest pulmonary embolus. Nonaneurysmal thoracic aorta which demonstrates severe calcified and noncalcified disease. No gross mediastinal lymphadenopathy. Left thyroid nodule. Partially visualized peripherally calcified left breast prosthesis. The right breast is surgically absent. Central airways are patent. Lungs are adequately aerated. Mild to moderate emphysematous changes are noted. There are scattered subpleural reticular and groundglass densities noted particularly within the lower lobes. Dependent atelectasis is also appreciated. No pleural effusion or pneumothorax. No large focal mass. Visualized portion of the upper abdomen are grossly unremarkable. Diffuse osteopenia with scoliotic and severe degenerative changes of the spine. CT/CT angio chest PE protocol IMPRESSION: -No pulmonary embolism. -Lung findings consistent with Covid pneumonia. VTE: negative Dictated By:VERA BLOOM MDSigned By:<Electronically signed by VERA BLOOM MD in [place]>
[2020-06-30 17:41] LABS: Basophils Percent Auto 0.3 % (0-2); Hematocrit 43.1 % (37-47); Imm Gran Abs Auto 0.03 X10*3/uL (0.00-0.03); Imm Gran Pct Auto 0.9 % (0.0-0.4); Lymphocytes Absolute Auto 0.4 X10*3/uL (1.2-4.9); Lymphocytes Percent Auto 12.4 % (20-40); MANUAL DIFF FLAG SCAN; Mean Corpuscular HGB Conc 32.5 g/dl (31.0-35.0); Mean Corpuscular Hemoglobin 27.6 pg (27.0-33.0); Mean Corpuscular Volume 84.8 fL (80-98); Mean Platelet Volume 11.1 fL (9.4-12.3); Monocytes Absolute Auto 0.2 X10*3/uL (0.1-1.2); Monocytes Percent Auto 6.3 % (2-11); Neutrophils Absolute Auto 2.8 X10*3/uL (2.0-8.3); Neutrophils Percent Auto 80.1 % (45-73); Platelet Count 192 X10*3/uL (160-400); Red Blood Count 5.08 X10*6/uL (4.20-5.50); Red Cell Distribution Width 13.9 % (11.0-16.0); SCAN SMEAR FLAG 1; White Blood Count 3.5 X10*3/uL (4.8-10.8)
[2020-06-30 18:10] LABS: Lactic Acid 1.4 mmol/L (0.5-2.0)
[2020-06-30 18:12] LABS: SLIDE REVIEW VERIFIED
[2020-06-30] MEDS: cefTRIAXone sodium 1 GM in 0.9 % Sodium Chloride 50 ML IV (18:40)
--- NOTE | 2020-06-30 18:42 | PC.NURSE ---
SPOKE WITH DAUGHTER COLLIN IN WR, UPDATED ON PLAN FOR CARE. CONFIRMED PT IS MID-ABX COURSE FOR UTI, ALL RXS ADMINISTERED BY DAUGHTER. PT CURRENTLY COMFORTABLE WITH 3L O2, SPO2 97%. #20 IN L AC. STRAIGHT CATH'D FOR URINE SPECIMEN.
[2020-06-30 19:10] LABS: Glucose Urine UA NEG (NEG); Leukocyte Esterase Urine NEG (NEG); Nitrite Urine NEG (NEG); Specific Gravity - Urine 1.025 (1.005-1.025); Urine Blood TRACE (NEG); Urine Ketones 5 MG/DL (NEG); Urine Protein TRACE MG/DL (NEG-TRACE)
[2020-06-30 19:12] LABS: Appearance Urine CLEAR; Color Urine YELLOW
[2020-06-30 19:17] LABS: D Dimer 730 NG/ML
[2020-06-30 19:30] LABS: RBC Urine 0-2 /HPF (0); Squamous Epithelial Cell Urine TRACE /LPF; WBC Urine 0-2 /HPF (0-4)
[2020-06-30 19:33] LABS: Anion Gap 18 (12-20); Blood Urea Nitrogen 30 mg/dL (9-16); Calcium 8.3 mg/dL (8.4-10.2); Carbon Dioxide 21 mmol/L (22-29); Chloride 102 mmol/L (96-108); Creatinine Clr Calc Pharmacy 33.6; Estimated Glomerular Filt Rate 58; Glucose Random 90 mg/dL (60-115); Lactate Dehydrogenase 303 U/L (122-220); Magnesium 1.7 mg/dL (1.6-2.6); Potassium 3.7 mmol/L (3.3-5.1); Sodium 137 mmol/L (135-145)
[2020-06-30 20:17] VITALS: BP 150/47; PULSE 83; RESP 23; TEMP 37.6; O2SAT 95
--- NOTE | 2020-06-30 20:20 | PC.NURSE ---
Pt resting on stretcher in NAD, breathing with ease on 3L NC. Pt aaox1, oriented only to self. Pt pleasant, conversational and compliant with pt care. Pt IV abx completed, pt to be medicated per MAY. Pt agreeable to plan for admission, awaiting bed assignment. Stretcher in lowest locked position, rails raised, call brantley within reach.
[2020-06-30] MEDS: dexAMETHasone sod phosphate 4 MG/ML VIAL 6 MG IVPUSH (20:23)
[2020-06-30] MEDS: Acetaminophen 325 MG TABLET 650 MG PO (20:23)
[2020-06-30] MEDS: 0.9 % Sodium Chloride 1,000 ML 999 ML IVCONT (20:23)
[2020-06-30 20:26] LABS: INTERNATIONAL NORM RATIO 1.1 (0.9-1.1); Prothrombin Time 12.8 SEC (10.8-13.0)
[2020-06-30 20:32] LABS: Partial Thromboplastin Time 40.9 SEC (24.1-38.0)
[2020-06-30] MEDS: iohexoL 350 MG/ML 100 ML INFUS..BTL IV (21:20)
[2020-06-30 21:49] VITALS: BP 128/45; PULSE 72; RESP 27; TEMP 37.1; O2SAT 99
--- NOTE | 2020-06-30 21:52 | PC.NURSE ---
Pt resting on stretcher in NAD, breathing with ease on NC. Pt VSS. pt awaiting bed assignment. This RN obtained covid swab, to sent to lab for processing. Stretcher in lowest locked position with side rails raised, call brantley within reach.
[2020-06-30 22:15] LABS: COVID-19 Test Positive (Negative)
--- NOTE | 2020-06-30 23:26 | PM.IMHP ---
History of Present Illness Date of Service: 06/30/20 Chief Complaint: fever [age] year old female with history of hypertension, anxiety who was initially seen in the ED on 06/27 for weakness and at that time was diagnosed with COVID and UTI discharged home on Ceftin presents to the hospital again with multiple complaints including fever, left ear pain doing better PCP sent her here. When I interviewed the patient she is only oriented to self but not to time or place. She does not know why she is in the hospital. She is awake alert but not oriented. She denies headache, reports shortness of breath with cough, denies any chest pain, no abdominal pain nausea or vomiting, no diarrhea constipation, no urinary symptoms and no lower extremity edema. To the ED patient had a temp of 101.4?, heart rate of 89, respiratory rate of 16, blood pressure 186/74, satting 85% on room air. Currently on 3 L of oxygen satting 100%. Labs on arrival significant for WBC count of 3.5, PTT of 40.9, INR of 1.1, D-dimer of 730, sodium of 137, potassium 3.7, BUN of 30, creatinine of 0.92, LDH of 303, UA negative, COVID-[address] angiogram reveals no PE, lung finding consistent with COVID pneumonia Past medical history per chart Review of Systems Review of Systems: Yes all other systems are reviewed and are negative [facility] Medical History Anxiety Dyslipidemia Orthostatic tremor Family History Father HTN (hypertension) Mother HTN (hypertension) Sister Breast cancer Son Bowel cancer Maternal Aunt Multiple sclerosis Paternal Aunt Diabetes mellitus Neuropathy Amputation leg, bilat Surgical History History of arthroscopy of knee History of breast implant History of cataract surgery History of eye surgery History of hysterectomy History of mastectomy History of parathyroid surgery History of tonsillectomy and adenoidectomy S/P thyroid biopsy Social History Alcohol intake: never Smoking Status: Never smoker Advance Directives: No Advance Directives Information Provided: Yes Meds Allergies Allergy/AdvReac Type Severity Reaction Status Date / Time Sulfa (Sulfonamide Allergy Unknown unknown Verified 06/30/20 17:02 Antibiotics) sulfamethoxazole Allergy Unknown ANGIOEDEMA Verified 06/30/20 17:02 [From BACTRIM] trimethoprim [From BACTRIM] Allergy Unknown ANGIOEDEMA Verified 06/30/20 17:02 Home Medications Medication Instructions Recorded Confirmed Last Taken Type amlodipine 10 mg PO DAILY 06/30/20 06/30/20 Unknown History clonazepam 0.25 mg PO BID 06/30/20 06/30/20 Unknown History metoprolol succinate 100 mg PO DAILY 06/30/20 06/30/20 Unknown History Physical Exam Vital Signs and Narrative: Vital Signs: Last Vital Signs Temp 98.8 F 06/30/20 21:49 Pulse 72 06/30/20 21:49 Resp 27 H 06/30/20 21:49 BP 128/45 L 06/30/20 21:49 Pulse Ox 99 06/30/20 21:49 Body Mass Index 19.2 Const: Other: Oriented to self but not to time or place General: cooperative and no acute distress Eyes: General: appearance normal, both eyes and all related structures Resp: Effort & Inspection: normal respiratory effort and able to speak in complete sentences Cardio: Rate: regular rate Rhythm: regular rhythm GI: Palpation (GI): Soft to palpation Auscultation: normal bowel sounds Skin: General skin exam: no rashes or lesions noted Neuro: Cognition (Neuro): normal cognition Extrem: General: Yes normal to inspection and Yes no pedal edema Results Labs CBC and Chem 7: 06/30/20 17:27 06/30/20 18:38 Labs: Laboratory Results - last 24 hr 06/30/20 06/30/20 06/30/20 17:27 17:27 17:28 MCV 84.8 MCH 27.6 MCHC 32.5 RDW 13.9 Plt Count 192 D MPV 11.1 Immature Gran % (Auto) 0.9 H Neut % (Auto) 80.1 H Lymph % (Auto) 12.4 L [place] % (Auto) 6.3 Eos % (Auto) 0.0 Baso % (Auto) 0.3 Lymph # (Auto) 0.4 L [place] # (Auto) 0.2 Eos # (Auto) 0.0 Baso # (Auto) 0.0 Abs Immat Gran (auto) 0.03 Absolute Neuts (auto) 2.8 Absolute Nucleated RBC 0.000 Nucleated RBC % (auto) 0.0 Smear Tech's Comments VERIFIED PT INR APTT D-Dimer Anion Gap Estim Creat Clear Calc Estimated GFR Random Glucose Lactic Acid 1.4 Calcium Magnesium Cancelled Lactate Dehydrogenase Urine Color Urine Appearance Urine pH Ur Specific [place] Urine Protein Urine Glucose (UA) Urine Ketones Urine Blood Urine Nitrite Ur Leukocyte Esterase Urine RBC Urine WBC Ur Squamous Epith Cells Urine Bacteria COVID-19 (NEELAM) COVID-19 Clin Com 06/30/20 06/30/20 06/30/20 18:38 18:38 18:38 MCV MCH MCHC RDW Plt Count MPV Immature Gran % (Auto) Neut % (Auto) Lymph % (Auto) [place] % (Auto) Eos % (Auto) Baso % (Auto) Lymph # (Auto) [place] # (Auto) Eos # (Auto) Baso # (Auto) Abs Immat Gran (auto) Absolute Neuts (auto) Absolute Nucleated RBC Nucleated RBC % (auto) Smear Tech's Comments PT 12.8 INR 1.1 APTT 40.9 H D-Dimer 730 Anion Gap 18 Estim Creat Clear Calc 33.6 Estimated GFR 58 Random Glucose 90 Lactic Acid Calcium 8.3 L Magnesium 1.7 Lactate Dehydrogenase 303 H Urine Color YELLOW Urine Appearance CLEAR Urine pH 6.0 Ur Specific [place] 1.025 Urine Protein TRACE Urine Glucose (UA) NEG Urine Ketones 5 Urine Blood TRACE Urine Nitrite NEG Ur Leukocyte Esterase NEG Urine RBC 0-2 Urine WBC 0-2 Ur Squamous Epith Cells TRACE Urine Bacteria NONE COVID-19 (NEELAM) COVID-19 Clin Com 06/30/20 21:52 MCV MCH MCHC RDW Plt Count MPV Immature Gran % (Auto) Neut % (Auto) Lymph % (Auto) [place] % (Auto) Eos % (Auto) Baso % (Auto) Lymph # (Auto) [place] # (Auto) Eos # (Auto) Baso # (Auto) Abs Immat Gran (auto) Absolute Neuts (auto) Absolute Nucleated RBC Nucleated RBC % (auto) Smear Tech's Comments PT INR APTT D-Dimer Anion Gap Estim Creat Clear Calc Estimated GFR Random Glucose Lactic Acid Calcium Magnesium Lactate Dehydrogenase Urine Color Urine Appearance Urine pH Ur Specific [place] Urine Protein Urine Glucose (UA) Urine Ketones Urine Blood Urine Nitrite Ur Leukocyte Esterase Urine RBC Urine WBC Ur Squamous Epith Cells Urine Bacteria COVID-19 (NEELAM) Positive A COVID-19 Clin Com See Note Imaging Radiologist's Impressions: Impressions Chest X-Ray 06/30/20 16:48 IMPRESSION: No acute change of chest. Chest CTA 06/30/20 20:02 IMPRESSION: -No pulmonary embolism. -Lung findings consistent with Covid pneumonia. VTE: negative Assessment and Plan (1) Acute respiratory failure with hypoxia: Status: Acute (2) Pneumonia due to COVID-19 virus: Status: Acute (3) Sepsis: Status: Acute 84-year-old female with past medical history of dementia, anxiety who presents to the hospital with nonspecific complaints. Was recently seen in the hospital on 06/27 and at that time was diagnosed with COVID-19 and UTI. Treated with Ceftin for her UTI and UTIs resolved. # acute hypoxic respiratory failure - secondary to COVID-19 pneumonia , no evidence of PE on CT angiogram, less likely to be bacterial pneumonia - COVID-19 positive on 06/27 - patient requiring 3 L of oxygen at this time sating> 90% but presented with O2 84% on RAPlan: - Decadron 6mg/daily - O2 as required # sepsis - most likely secondary to viral pneumonia - no evidence of UTI on UA. Was on antibiotic for the past 5 days Plan: - Decadron for COVID-19 - follow culture # COVID-19 pneumonia - management with Decadron, and O2 supplement as required DVT prophylaxis: heparin subq
[2020-07-01] VITALS (12 sets, daily range): BP systolic 100–165; BP diastolic 49–76; PULSE 54–73; RESP 13–58; TEMP 35.1–36.6; O2SAT 93–100
--- NOTE | 2020-07-01 | ECG_ITS ---
Test Reason : BRDYCARDIC, HYPOTHER Blood Pressure : / mmHG Vent. Rate : 057 BPM Atrial Rate : 057 BPM P-R Int : 156 ms QRS Dur : 136 ms QT Int : 540 ms P-R-T Axes : 059 -28 -06 degrees QTc Int : 525 ms Sinus bradycardia Right bundle branch block Moderate voltage criteria for LVH, may be normal variant Lateral infarct , age undetermined Abnormal ECG When compared with ECG of 30-JUN-2020 17:06, Premature ventricular complexes are no longer Present Vent. rate has decreased BY 28 BPM Nonspecific T wave abnormality has replaced inverted T waves in Anterior leads Referred By: Gibson Sampson Electronically Signed By:Pio Ledesma
--- NOTE | 2020-07-01 03:37 | PC.NURSE ---
Pt asleep on stretcher in NAD, breathing with ease on 3L NC. Rectal temp 95.2 confirmed by this RN and DAVIN Myers. Pt warmed with warm packs, warm blankets. Plan to reassess temp in 1 hour. Provider made aware. Pt mentating at baseline, denies pain/discomfort. Stretcher is in lowest locked position, rails raised, call brantley within reach. Lights dimmed for pt comfort and to promote rest.
[2020-07-01] MEDS: Heparin Sodium,Porcine 5,000 UNIT/ML VIAL 5000 UNIT SUBCUT ×2 (03:40→16:43)
--- NOTE | 2020-07-01 03:42 | PC.NURSE ---
Per Dr Cabrera, pt to be placed on anjali hugger
--- NOTE | 2020-07-01 03:50 | PC.NURSE ---
Valerie garcia in place, working appropriately
--- NOTE | 2020-07-01 04:15 | PC.NURSE ---
CALL PLACED TO HOSPITALIST TIANA VILLAFANA ABOUT PATIENT RECTAL TEMP OF 95. PROVIDER AWARE AND PLAN FOR WARM BLANKETS AND THE BEAR-HUGGER TO BE PLACED ON PATIENT FOR REWARMING. PATIENTS HEART RATE LOWERING TO MID 50'S GOING LOW 51 ON THE BEDSIDE MONITOR. CONFIRMING IN CHART THAT PATIENT IS A FULL CODE. PATIENT RESTING WITH EYES CLOSED. DIFFICULT TO AROUSE AT TIME. PATIENT ROTATED TO CHANGE POSITION. PATIENT YELLING AT STAFF AND ALERT WITH THEM DURING ADL'S. WILL CONTINUE TO CLOSELY MONITOR.
--- NOTE | 2020-07-01 05:22 | PC.NURSE ---
DAVIN Myers spoke with Dr Cabrera who recommends a repeated EKG and trop. Lucia at bedside obtaining EKG, will also obtain trop.
[2020-07-01 05:48] LABS: Hematocrit 40.9 % (37-47); Hemoglobin 13.4 g/dl (12.0-16.0); Imm Gran Abs Auto 0.01 X10*3/uL (0.00-0.03); Imm Gran Pct Auto 0.4 % (0.0-0.4); Lymphocytes Absolute Auto 0.4 X10*3/uL (1.2-4.9); MANUAL DIFF FLAG SCAN; Mean Corpuscular HGB Conc 32.8 g/dl (31.0-35.0); Mean Corpuscular Hemoglobin 27.7 pg (27.0-33.0); Mean Corpuscular Volume 84.7 fL (80-98); Mean Platelet Volume 11.1 fL (9.4-12.3); Monocytes Absolute Auto 0.1 X10*3/uL (0.1-1.2); Monocytes Percent Auto 3.5 % (2-11); Neutrophils Absolute Auto 2.1 X10*3/uL (2.0-8.3); Neutrophils Percent Auto 82.1 % (45-73); Platelet Count 163 X10*3/uL (160-400); Red Blood Count 4.83 X10*6/uL (4.20-5.50); Red Cell Distribution Width 13.9 % (11.0-16.0); SCAN SMEAR FLAG 1; White Blood Count 2.6 X10*3/uL (4.8-10.8)
[2020-07-01 06:22] LABS: Anion Gap 16 (12-20); Blood Urea Nitrogen 28 mg/dL (9-16); Calcium 7.9 mg/dL (8.4-10.2); Carbon Dioxide 20 mmol/L (22-29); Chloride 109 mmol/L (96-108); Creatinine Clr Calc Pharmacy 38.2; Estimated Glomerular Filt Rate > 60; Glucose Random 126 mg/dL (60-115); Potassium 3.8 mmol/L (3.3-5.1); Sodium 141 mmol/L (135-145); Troponin-I High Sensitivity 397.4 ng/L (<3.5-17.0)
[2020-07-01 06:28] LABS: SLIDE REVIEW VERIFIED
[2020-07-01] MEDS: 0.9 % Sodium Chloride Flush 3 ML SYRINGE IVFLUSH (08:55)
[2020-07-01] MEDS: clonazePAM 0.5 MG TABLET 0.25 MG PO ×2 (09:08→21:48)
[2020-07-01] MEDS: amLODIPine Besylate 10 MG TABLET PO (09:09)
[2020-07-01] MEDS: Metoprolol Succinate ER 100 MG TAB.ER.24H PO (09:11)
[2020-07-01] MEDS: dexAMETHasone sod phosphate 4 MG/ML VIAL 6 MG IVPUSH (09:12)
--- NOTE | 2020-07-01 09:34 | PC.NURSE ---
pt ate 15% of breakfast. states that she has a bad tooth on the l side.
--- NOTE | 2020-07-01 09:48 | MHC.CM.PN ---
Attempted to meet with patient in regards to discharge planning. Patient is currently confused. Spoke with patient's daughter, Susie via telephone at [phone]. Patient was living at home with her son Denys. Denys is currently admitted at [facility] with Covid. Per Susie, he has a poor prognosis and may not make it out of the hospital. Patient was ambulating with a walker prior to getting sick. However, patient has needed max assistance to transfer to the commode at home. Patient tested postiive for Covid on 06/27. PCP verified as Dr Peña. Per Susie, patient does not have a HCP. Physical therapy eval for home safety will be needed when medically stable. Lists of facililities contracted with patient's insurance and accepting Covid patients provided to Susie via email. IMM explained and sent via certified mail. Continue to monitor for d/c needs.
[2020-07-01 11:38] LABS: Troponin-I High Sensitivity 372.6 ng/L (<3.5-17.0)
--- NOTE | 2020-07-01 14:13 | HO.PM.IMPN ---
Subjective Subjective Date of Service: 07/01/20 Interval History: Follow up for admission for covid 19 Sleepy but responding easily to verbal stimuli. No complaints at this time. Reported ear pain from notes, although patient denying at this time. Physical Exam Vital Signs: Vital Signs: Last Vital Signs Temp 96.4 F L 07/01/20 11:23 Pulse 67 07/01/20 13:49 Resp 13 07/01/20 13:49 BP 113/56 L 07/01/20 13:49 Pulse Ox 94 07/01/20 13:49 Body Mass Index 19.2 Const: Other: sleepy, answers most questions appropriately; somewhat confused General: No no acute distress Nutritional Appearance: thin HENMT: Head: Yes normocephalic and Yes atraumatic Eyes: Sclerae: sclerae normal Chest: Chest palpation & inspection: normal inspection of the chest Resp: Effort & Inspection: normal respiratory effort and no respiratory distress Cardio: Rate: regular rate Rhythm: regular rhythm GI: Palpation (GI): nontender Neuro: Cranial nerves: Yes CN's II-XII intact bilaterally and Yes Bilaterally intact EOM present Extrem: General: Yes normal to inspection Objective Data Current Medications Generic Name Dose Route Start Last Admin Trade Name Freq PRN Reason Stop Dose Admin Acetaminophen 650 mg 07/01/20 00:53 Acetaminophen 325 Mg Tablet PO Q6H PRN Pain, Mild (Pain Scale 1-3) Amlodipine Besylate 10 mg 07/01/20 09:00 07/01/20 09:09 Amlodipine Besylate 10 Mg Tablet PO 10 mg DAILY RUBEN Administration Protocol Atorvastatin Calcium 20 mg 07/01/20 21:00 Atorvastatin Calcium 20 Mg Tablet PO BEDTIME RUBEN Clonazepam 0.25 mg 07/01/20 09:00 07/01/20 09:08 Clonazepam 0.5 Mg Tablet PO 0.25 mg BID RUBEN Administration Dexamethasone Sodium Phosphate 6 mg 07/01/20 09:00 07/01/20 09:12 Dexamethasone Sod Phosphate 4 Mg/Ml Vial IVPUSH 6 mg DAILY RUBEN Administration Docusate Sodium 100 mg 07/01/20 00:53 Docusate Sodium 100 Mg Capsule PO DAILY PRN Constipation Heparin Sodium (Porcine) 5,000 unit 07/01/20 02:00 07/01/20 03:40 Heparin Sodium,Porcine 5,000 Unit/Ml Vial SUBCUT 5,000 unit Q12H RUBEN Administration Loperamide HCl 2 mg 07/01/20 01:37 Loperamide Hcl 2 Mg Capsule PO Q8H PRN loose stool Meclizine HCl 25 mg 07/01/20 00:53 Meclizine Hcl 25 Mg Tablet PO DAILY PRN dizziness Metoprolol Succinate 100 mg 07/01/20 09:00 07/01/20 09:11 Metoprolol Succinate Er 100 Mg Tab.Er.24h PO 100 mg DAILY RUBEN Administration Protocol Ondansetron HCl 4 mg 07/01/20 00:53 Ondansetron Hcl 4 Mg/2 Ml Vial IVPUSH Q8H PRN Nausea and Vomiting Sodium Chloride 3 ml 07/01/20 00:53 07/01/20 08:55 0.9 % Sodium Chloride Flush 3 Ml Syringe IVFLUSH 3 ml QSHIFT RUBEN Administration Labs CBC & Chem 7: 07/01/20 05:30 07/01/20 05:30 Assessment and Plan (1) Pneumonia due to COVID-19 virus: Status: Acute (2) Acute respiratory failure with hypoxia: Status: Acute Assessment and Plan: 84-year-old female with past medical history of dementia, anxiety who presents to the hospital with nonspecific complaints. Was recently seen in the hospital on 06/27 and at that time was diagnosed with COVID-19 and UTI. Treated with Ceftin for her UTI and UTIs resolved. acute hypoxic respiratory failure covid 19 pneumonia viral sepsis - COVID-19 positive on 06/27 - Decadron 6mg/daily - supplemental O2 as required - ID consult Elevated troponin denies chest pain -will order echo -cardiology consult UTI present on admission dx 06/27. UCx growing bello sensitive e.coli repeat UA negative -change PO ceftin to IV ceftriaxone HLD continue statin HTN continue Norvasc, metoprolol dvt ppx heparin code status - full code Attending- Dr. mirza
[2020-07-01] MEDS: cefTRIAXone sodium 1 GM in 0.9 % Sodium Chloride 50 ML IV (18:55)
[2020-07-01] MEDS: Atorvastatin Calcium 20 MG TABLET PO (21:48)
[2020-07-02] MEDS: 0.9 % Sodium Chloride Flush 3 ML SYRINGE IVFLUSH ×4 (00:16→20:52)
[2020-07-02] MEDS: Heparin Sodium,Porcine 5,000 UNIT/ML VIAL 5000 UNIT SUBCUT ×2 (01:31→13:15)
[2020-07-02 03:42] VITALS: BP 140/60; PULSE 56; RESP 18; TEMP 36.6; O2SAT 97
[2020-07-02 08:00] VITALS: BP 154/71; PULSE 85; RESP 20; TEMP 35.9; O2SAT 96
[2020-07-02 10:06] LABS: Hematocrit 43.1 % (37-47); Hemoglobin 14.2 g/dl (12.0-16.0); Mean Corpuscular HGB Conc 32.9 g/dl (31.0-35.0); Mean Corpuscular Hemoglobin 27.8 pg (27.0-33.0); Mean Corpuscular Volume 84.3 fL (80-98); Mean Platelet Volume 11.1 fL (9.4-12.3); Platelet Count 254 X10*3/uL (160-400); Red Blood Count 5.11 X10*6/uL (4.20-5.50); White Blood Count 12.3 X10*3/uL (4.8-10.8)
[2020-07-02 10:41] LABS: Anion Gap 16 (12-20); Blood Urea Nitrogen 38 mg/dL (9-16); Calcium 8.4 mg/dL (8.4-10.2); Carbon Dioxide 23 mmol/L (22-29); Chloride 108 mmol/L (96-108); Creatinine Clr Calc Pharmacy 33.2; Estimated Glomerular Filt Rate 57; Glucose Random 138 mg/dL (60-115); Potassium 3.8 mmol/L (3.3-5.1); Sodium 143 mmol/L (135-145)
[2020-07-02] MEDS: clonazePAM 0.5 MG TABLET 0.25 MG PO (11:03)
[2020-07-02] MEDS: Metoprolol Succinate ER 100 MG TAB.ER.24H PO (11:03)
[2020-07-02] MEDS: amLODIPine Besylate 10 MG TABLET PO (11:03)
[2020-07-02] MEDS: dexAMETHasone sod phosphate 4 MG/ML VIAL 6 MG IVPUSH (11:04)
--- NOTE | 2020-07-02 11:22 | MHC.CM.PN ---
Per ROUNDS discussion, Patient is not yet medically cleared for dc (IV Decadron, IV Ceftriaxone, Still requiring O2, Cardiac w/u in progress). STR appears likely, pending PT eval. CM will continue to follow for dc planning.
[2020-07-02 11:27] VITALS: BP 145/65; PULSE 83; RESP 20; TEMP 36.2; O2SAT 94
--- NOTE | 2020-07-02 11:53 | PM.CNCAR ---
History of Present Illness History of Present Illness Date of Service: 07/02/20 Requesting physician: Clay Thakur Chief complaint: Covid 19 PNA, Hypoxic Narrative: 84-year-old female with background history of hypertension, anxiety, dyslipidemia and known coronary disease with previous GA who is presenting with weakness and was diagnosed with COVID-19 infection. She was found to have normal troponin level and we were consulted. She has no chest pain or shortness of breath. She had high fevers on admission and was hypoxic. [facility] Past Medical History Medical History Anxiety Dyslipidemia Orthostatic tremor Family History Family History Father HTN (hypertension) Mother HTN (hypertension) Sister Breast cancer Son Bowel cancer Maternal Aunt Multiple sclerosis Paternal Aunt Diabetes mellitus Neuropathy Amputation leg, bilat Surgical History Surgical History History of arthroscopy of knee History of breast implant History of cataract surgery History of eye surgery History of hysterectomy History of mastectomy History of parathyroid surgery History of tonsillectomy and adenoidectomy S/P thyroid biopsy Social History Social History Household Members: Family Housing: House Do you presently have visiting nurse or other home services: No Alcohol intake: never Smoking Status: Never smoker Second Hand Smoke Exposure: No Use of substances other than those prescribed or required for medical reasons: No Currently Displaying Signs/Symptoms of Drug Intoxication Withdrawal: No Any prior treatment program specific to substance use: No Advance Directives: No Advance Directives Information Provided: Yes Do you have thoughts of harming others: None Do you have a plan to hurt others: No Plan Recently lost weight without trying: Unsure service: No Current occupational status: retired Meds Allergies Allergy/AdvReac Type Severity Reaction Status Date / Time Sulfa (Sulfonamide Allergy Unknown unknown Verified 06/30/20 17:02 Antibiotics) sulfamethoxazole Allergy Unknown ANGIOEDEMA Verified 06/30/20 17:02 [From BACTRIM] trimethoprim [From BACTRIM] Allergy Unknown ANGIOEDEMA Verified 06/30/20 17:02 Active Medications: Current Medications Generic Name Dose Route Start Last Admin Trade Name Freq PRN Reason Stop Dose Admin Acetaminophen 650 mg 04/22/21 00:53 Acetaminophen 325 Mg Tablet PO Q6H PRN Pain, Mild (Pain Scale 1-3) Amlodipine Besylate 10 mg 07/01/20 09:00 07/02/20 11:03 Amlodipine Besylate 10 Mg Tablet PO 10 mg DAILY RUBEN Administration Protocol Atorvastatin Calcium 20 mg 07/01/20 21:00 07/01/20 21:48 Atorvastatin Calcium 20 Mg Tablet PO 20 mg BEDTIME RUBEN Administration Clonazepam 0.25 mg 07/01/20 09:00 07/02/20 11:03 Clonazepam 0.5 Mg Tablet PO 0.25 mg BID RUBEN Administration Dexamethasone Sodium Phosphate 6 mg 07/01/20 09:00 07/02/20 11:04 Dexamethasone Sod Phosphate 4 Mg/Ml Vial IVPUSH 6 mg DAILY RUBEN Administration Docusate Sodium 100 mg 07/01/20 00:53 Docusate Sodium 100 Mg Capsule PO DAILY PRN Constipation Heparin Sodium (Porcine) 5,000 unit 07/01/20 02:00 07/02/20 01:31 Heparin Sodium,Porcine 5,000 Unit/Ml Vial SUBCUT 5,000 unit Q12H RUBEN Administration Ceftriaxone Sodium 1 gm/ 50 mls @ 100 mls/hr 07/01/20 18:00 07/01/20 21:31 Sodium Chloride IV Infused Q24H RUBEN Infusion Loperamide HCl 2 mg 07/01/20 01:37 Loperamide Hcl 2 Mg Capsule PO Q8H PRN loose stool Meclizine HCl 25 mg 07/01/20 00:53 Meclizine Hcl 25 Mg Tablet PO DAILY PRN dizziness Metoprolol Succinate 100 mg 07/01/20 09:00 07/02/20 11:03 Metoprolol Succinate Er 100 Mg Tab.Er.24h PO 100 mg DAILY RUBEN Administration Protocol Ondansetron HCl 4 mg 07/01/20 00:53 Ondansetron Hcl 4 Mg/2 Ml Vial IVPUSH Q8H PRN Nausea and Vomiting Sodium Chloride 3 ml 07/01/20 00:53 07/02/20 11:04 0.9 % Sodium Chloride Flush 3 Ml Syringe IVFLUSH 3 ml QSHIFT RUBEN Administration Home Medications Medication Instructions Recorded Confirmed Last Taken Type amlodipine 10 mg PO DAILY 06/30/20 06/30/20 Unknown History clonazepam 0.25 mg PO BID 06/30/20 06/30/20 Unknown History metoprolol succinate 100 mg PO DAILY 06/30/20 06/30/20 Unknown History Physical Exam Vital Signs: Vital Signs: Last Vital Signs Temp 97.2 F 07/02/20 11:27 Pulse 83 07/02/20 11:27 Resp 20 07/02/20 11:27 BP 145/65 H 07/02/20 11:27 Pulse Ox 94 07/02/20 11:27 Body Mass Index 19.2 ENERAL APPEARANCE: in no acute distress, frail looking. HEENT: unremarkable. HEAD: normocephalic, atraumatic. NECK/THYROID: no carotid bruit, no jugular venous distention. SKIN: no suspicious lesions, warm and dry. HEART: no murmurs, regular rate and rhythm, S1, S2 normal. LUNGS: Crackles right base. ABDOMEN: normal, bowel sounds present, soft, nontender, nondistended. EXTREMITIES: no clubbing, cyanosis, or edema. PERIPHERAL PULSES: equal. Results Labs and Meds Result diagrams: 07/02/20 09:42 07/02/20 09:42 Lab results: Laboratory Results - last 24 hr 07/02/20 07/02/20 09:42 09:42 WBC 12.3 H RBC 5.11 Hgb 14.2 Hct 43.1 MCV 84.3 MCH 27.8 MCHC 32.9 RDW 14.0 Plt Count 254 D MPV 11.1 Absolute Nucleated RBC 0.000 Nucleated RBC % (auto) 0.0 Sodium 143 Potassium 3.8 Chloride 108 Carbon Dioxide 23 Anion Gap 16 BUN 38 H Creatinine 0.93 Estim Creat Clear Calc 33.2 Estimated GFR 57 Random Glucose 138 H Calcium 8.4 D Assessment and Plan (1) Pneumonia due to COVID-19 virus: Status: Acute (2) Hypoxia: Status: Acute (3) Elevated troponin: Status: Acute Pleasant 84-year-old female who is presenting for COVID-19 infection and pneumonia. She was hypoxic and had fevers. She had abnormal troponin I level. She has no chest pain or shortness of breath. I think the troponin level is elevated due to type 2 GA. she should have treatment for COVID-19 and no further workup is required for the troponin right now. If she develops any chest discomfort then please re-consult us. Thank you for allowing me to participate in the care of your patient. Please feel free to contact me if you have any questions.
--- NOTE | 2020-07-02 15:03 | HO.PM.IMPN ---
Subjective Subjective Date of Service: 07/02/20 Interval History: follow up covid 19, elevated trops Seen and examined this morning Reports no complaints at this time, somewhat sleepy but able to answer all questions appropriately Review of Systems Review of Systems: Yes all other systems are reviewed and are negative Constitutional Constitutional: Denies chills and Denies fever(s) Cardiovascular Cardiovascular: Denies chest pain Respiratory Respiratory: Denies cough Gastrointestinal Gastrointestinal: Denies abdominal pain Physical Exam Vital Signs: Vital Signs: Last Vital Signs Temp 97.2 F 07/02/20 11:27 Pulse 83 07/02/20 11:27 Resp 20 07/02/20 11:27 BP 145/65 H 07/02/20 11:27 Pulse Ox 94 07/02/20 11:27 Body Mass Index 19.2 Const: Other: tired appearing. awake and alert Nutritional Appearance: thin HENMT: Other: white growth noted left side lower gums Head: Yes normocephalic and Yes atraumatic Eyes: Sclerae: sclerae normal Chest: Chest palpation & inspection: normal inspection of the chest Resp: Effort & Inspection: normal respiratory effort and no respiratory distress Cardio: Rate: regular rate Rhythm: regular rhythm GI: Palpation (GI): Soft to palpation and nontender Neuro: Cranial nerves: Yes CN's II-XII intact bilaterally and Yes Bilaterally intact EOM present Objective Data Current Medications Generic Name Dose Route Start Last Admin Trade Name Freq PRN Reason Stop Dose Admin Acetaminophen 650 mg 07/01/20 00:53 Acetaminophen 325 Mg Tablet PO Q6H PRN Pain, Mild (Pain Scale 1-3) Amlodipine Besylate 10 mg 07/01/20 09:00 07/02/20 11:03 Amlodipine Besylate 10 Mg Tablet PO 10 mg DAILY RUBEN Administration Protocol Atorvastatin Calcium 20 mg 07/01/20 21:00 07/01/20 21:48 Atorvastatin Calcium 20 Mg Tablet PO 20 mg BEDTIME RUBEN Administration Clonazepam 0.25 mg 07/01/20 09:00 07/02/20 11:03 Clonazepam 0.5 Mg Tablet PO 0.25 mg BID RUBEN Administration Dexamethasone Sodium Phosphate 6 mg 07/01/20 09:00 07/02/20 11:04 Dexamethasone Sod Phosphate 4 Mg/Ml Vial IVPUSH 6 mg DAILY RUBEN Administration Docusate Sodium 100 mg 07/01/20 00:53 Docusate Sodium 100 Mg Capsule PO DAILY PRN Constipation Heparin Sodium (Porcine) 5,000 unit 07/01/20 02:00 07/02/20 13:15 Heparin Sodium,Porcine 5,000 Unit/Ml Vial SUBCUT 5,000 unit Q12H RUBEN Administration Ceftriaxone Sodium 1 gm/ 50 mls @ 100 mls/hr 07/01/20 18:00 07/01/20 21:31 Sodium Chloride IV Infused Q24H RUBEN Infusion Loperamide HCl 2 mg 07/01/20 01:37 Loperamide Hcl 2 Mg Capsule PO Q8H PRN loose stool Meclizine HCl 25 mg 07/01/20 00:53 Meclizine Hcl 25 Mg Tablet PO DAILY PRN dizziness Metoprolol Succinate 100 mg 07/01/20 09:00 07/02/20 11:03 Metoprolol Succinate Er 100 Mg Tab.Er.24h PO 100 mg DAILY RUBEN Administration Protocol Ondansetron HCl 4 mg 07/01/20 00:53 Ondansetron Hcl 4 Mg/2 Ml Vial IVPUSH Q8H PRN Nausea and Vomiting Sodium Chloride 3 ml 07/01/20 00:53 07/02/20 11:04 0.9 % Sodium Chloride Flush 3 Ml Syringe IVFLUSH 3 ml QSHIFT RUBEN Administration Labs CBC & Chem 7: 07/02/20 09:42 07/02/20 09:42 Microbiology Microbiology Results: Microbiology 06/30/20 18:01 Blood - Venous Blood Culture - Preliminary No growth after 24 hours. 06/30/20 17:27 Blood - Venous Blood Culture - Preliminary No growth after 24 hours. Assessment and Plan (1) Elevated troponin: Status: Acute (2) Pneumonia due to COVID-19 virus: Status: Acute (3) Acute respiratory failure with hypoxia: Status: Acute Assessment and Plan: 84-year-old female with past medical history of dementia, anxiety who presents to the hospital with nonspecific complaints. Was recently seen in the hospital on 06/27 and at that time was diagnosed with COVID-19 and UTI. Treated with Ceftin for her UTI and UTIs resolved. acute hypoxic respiratory failure covid 19 pneumonia (tested + 06/27) viral sepsis - Decadron 6mg/daily day 2 - supplemental O2, wean as tolerated - ID consult pending Elevated troponin denies chest pain. likely secondary to hypoxia seen by cardiology. no further work up required at this time UTI present on admission dx 06/27. UCx growing bello sensitive e.coli repeat UA negative -change PO ceftin to IV ceftriaxone HLD continue statin HTN continue Norvasc, metoprolol Growth on gums - outpatient follow up dvt ppx heparin code status - full code Attending- Dr. mirza
[2020-07-02 15:43] VITALS: BP 158/69; PULSE 76; RESP 19; TEMP 36.2; O2SAT 95
[2020-07-02 15:48] LABS: Alanine Aminotransferase 20 U/L (0-31); Albumin Level 3.3 g/dL (3.5-5.0); Alkaline Phosphatase 56 U/L (39-117); Aspartate Amino Transferase 39 U/L (5-31); Bilirubin Direct 0.2 mg/dL (0.0-0.5); Bilirubin Total 0.5 mg/dL (0.0-1.0); Total Protein 6.1 g/dL (6.5-8.0)
[2020-07-02] MEDS: cefTRIAXone sodium 1 GM in 0.9 % Sodium Chloride 50 ML IV (18:38)
[2020-07-02 19:38] VITALS: BP 156/69; PULSE 72; RESP 19; TEMP 36.1; O2SAT 91
[2020-07-03] VITALS (9 sets, daily range): BP systolic 155–187; BP diastolic 67–80; PULSE 70–88; RESP 16–20; TEMP 36.2–36.5; O2SAT 91–94
[2020-07-03] MEDS: Heparin Sodium,Porcine 5,000 UNIT/ML VIAL 5000 UNIT SUBCUT ×2 (02:07→15:07)
[2020-07-03] MEDS: 0.9 % Sodium Chloride Flush 3 ML SYRINGE IVFLUSH ×2 (10:15→17:00)
[2020-07-03] MEDS: dexAMETHasone sod phosphate 4 MG/ML VIAL 6 MG IVPUSH (10:15)
--- NOTE | 2020-07-03 10:18 | HO.PM.IMPN ---
Subjective Subjective Date of Service: 07/03/20 <FRED Mohr - Last Filed: 07/03/20 12:05> 07/03/20 <Miguel Ángel Park MD - Last Filed: 07/03/20 16:22> Interval History: follow up for covid 19 more confused this morning seems uncomfortable, complaining of abdominal pain per nurse has been refusing po meds unable to articulate for more formal ROS <FRED Mohr - Last Filed: 07/03/20 12:05> Neurologic Neurologic: Reports confusion <FRED Mohr - Last Filed: 07/03/20 12:05> Psychiatric Psychiatric: Reports confusion <FRED Mohr - Last Filed: 07/03/20 12:05> Physical Exam Vital Signs: Vital Signs: Last Vital Signs Temp 97.1 F 07/03/20 08:00 Pulse 80 07/03/20 10:16 Resp 18 07/03/20 08:00 BP 178/74 H 07/03/20 10:16 Pulse Ox 93 07/03/20 08:00 Body Mass Index 19.2 <FRED Mohr - Last Filed: 07/03/20 12:05> Const: Other: appears uncomfortable <FRED Mohr - Last Filed: 07/03/20 12:05> General: awake and confusion <FRED Mohr - Last Filed: 07/03/20 12:05> Orientation/consciousness: confusion <FRED Mohr - Last Filed: 07/03/20 12:05> Resp: Effort & Inspection: no respiratory distress and no use of accessory muscles <FRED Mohr - Last Filed: 07/03/20 12:05> Cardio: Rate: regular rate <FRED Mohr - Last Filed: 07/03/20 12:05> Rhythm: regular rhythm <FRED Mohr - Last Filed: 07/03/20 12:05> GI: Inspection: No distended <FRED Mohr - Last Filed: 07/03/20 12:05> Palpation (GI): Soft to palpation and no guarding <FRED Mohr - Last Filed: 07/03/20 12:05> Neuro: General: confusion <FRED Mohr - Last Filed: 07/03/20 12:05> Extrem: Other: no edema <FRED Mohr - Last Filed: 07/03/20 12:05> Objective Data Current Medications Generic Name Dose Route Start Last Admin Trade Name Freq PRN Reason Stop Dose Admin Acetaminophen 650 mg 07/01/20 00:53 Acetaminophen 325 Mg Tablet PO Q6H PRN Pain, Mild (Pain Scale 1-3) Amlodipine Besylate 10 mg 07/01/20 09:00 07/03/20 10:16 Amlodipine Besylate 10 Mg Tablet PO 10 mg DAILY RUBEN Administration Protocol Atorvastatin Calcium 20 mg 07/01/20 21:00 07/02/20 20:52 Atorvastatin Calcium 20 Mg Tablet PO Not Given BEDTIME RUBEN Clonazepam 0.25 mg 07/01/20 09:00 07/02/20 20:52 Clonazepam 0.5 Mg Tablet PO Not Given BID RUBEN Dexamethasone Sodium Phosphate 6 mg 07/01/20 09:00 07/03/20 10:15 Dexamethasone Sod Phosphate 4 Mg/Ml Vial IVPUSH 6 mg DAILY RUBEN Administration Docusate Sodium 100 mg 07/01/20 00:53 Docusate Sodium 100 Mg Capsule PO DAILY PRN Constipation Heparin Sodium (Porcine) 5,000 unit 07/01/20 02:00 07/03/20 02:07 Heparin Sodium,Porcine 5,000 Unit/Ml Vial SUBCUT 5,000 unit Q12H RUBEN Administration Ceftriaxone Sodium 1 gm/ 50 mls @ 100 mls/hr 07/01/20 18:00 07/02/20 19:23 Sodium Chloride IV Infused Q24H RUBEN Infusion Loperamide HCl 2 mg 07/01/20 01:37 Loperamide Hcl 2 Mg Capsule PO Q8H PRN loose stool Meclizine HCl 25 mg 07/01/20 00:53 Meclizine Hcl 25 Mg Tablet PO DAILY PRN dizziness Metoprolol Succinate 100 mg 07/01/20 09:00 07/03/20 10:16 Metoprolol Succinate Er 100 Mg Tab.Er.24h PO 100 mg DAILY RUBEN Administration Protocol Ondansetron HCl 4 mg 07/01/20 00:53 Ondansetron Hcl 4 Mg/2 Ml Vial IVPUSH Q8H PRN Nausea and Vomiting Sodium Chloride 3 ml 07/01/20 00:53 07/03/20 10:15 0.9 % Sodium Chloride Flush 3 Ml Syringe IVFLUSH 3 ml QSHIFT RUBEN Administration <FRED Mohr - Last Filed: 07/03/20 12:05> Labs CBC & Chem 7: : 07/03/20 11:41 07/03/20 11:41 <FRED Mohr - Last Filed: 07/03/20 12:05> Microbiology Microbiology Results: Microbiology 06/30/20 18:01 Blood - Venous Blood Culture - Preliminary No growth after 48 hours. 06/30/20 17:27 Blood - Venous Blood Culture - Preliminary No growth after 48 hours. <FRED Mohr - Last Filed: 07/03/20 12:05> Assessment and Plan (1) Pneumonia due to COVID-19 virus: Status: Acute <FRED Mohr - Last Filed: 07/03/20 12:05> (2) Acute respiratory failure with hypoxia: Status: Acute <FRED Mohr - Last Filed: 07/03/20 12:05> Assessment and Plan: This is an 84-year-old female with past medical history of dementia, anxiety who presents to the hospital with nonspecific complaints. Was recently seen in the hospital on 06/27 and at that time was diagnosed with COVID-19 and UTI. acute toxic encephalopathy vs delirium in setting of probable underlying dementia, covid 19 -UA on admission negative -will eval cause of abdominal pain, check basic labs abdominal pain benign abdominal exam -check labs, CT abdomen HTN Bp elevated, pt refusing po meds -continue Norvasc, metoprolol if able otherwise may need to transition to IV acute hypoxic respiratory failure, hypoxia improving covid 19 pneumonia (tested + 06/27) viral sepsis - Decadron 6mg/daily day 3 - supplemental O2, wean as tolerated - ID consult pending Elevated troponin denies chest pain. likely secondary to hypoxia seen by cardiology. no further work up required at this time UTI present on admission dx 06/27. UCx growing bello sensitive e.coli repeat UA negative -change PO ceftin to IV ceftriaxone, last day 07/03 HLD continue statin Growth on gums - outpatient follow up Left leg pain. chronic, pt wears brace for ambulation and follows with ortho dvt ppx heparin code status - full code. This was discussed with daughter Susie who talked with all of her siblings and the decision was made to keep her full code at this time Attending- Dr. Park <FRED Mohr - Last Filed: 07/03/20 12:05> (3) Elevated troponin: Status: Acute <FRED Mohr - Last Filed: 07/03/20 12:05> Assessment and Plan: Addendum to documentation by midlevel I saw and examined the patient and participated in the lutz portion of the E/M service. I agree with the management by FRED. Patient continues to recovers from covid hypoxia, she has situational delium, a noted growth in her mouth is chronic and should be evaluated by ENT on outpatient basis. She had some abdominal discomfort and CT was negative, and abdominal exam is bening. Otherwise I agree with a/p above by PA <Miguel Ángel Park MD - Last Filed: 07/03/20 16:22>
[2020-07-03] MEDS: ondansetron HCL 4 MG/2 ML VIAL IVPUSH (10:29)
[2020-07-03 11:51] LABS: Hematocrit 42.2 % (37-47); Hemoglobin 14.2 g/dl (12.0-16.0); Mean Corpuscular HGB Conc 33.6 g/dl (31.0-35.0); Mean Corpuscular Hemoglobin 28.1 pg (27.0-33.0); Mean Corpuscular Volume 83.6 fL (80-98); Platelet Count 268 X10*3/uL (160-400); Red Blood Count 5.05 X10*6/uL (4.20-5.50); White Blood Count 13.3 X10*3/uL (4.8-10.8)
[2020-07-03 12:20] LABS: Alanine Aminotransferase 21 U/L (0-31); Albumin Level 3.3 g/dL (3.5-5.0); Alkaline Phosphatase 56 U/L (39-117); Anion Gap 17 (12-20); Aspartate Amino Transferase 36 U/L (5-31); Bilirubin Direct 0.2 mg/dL (0.0-0.5); Bilirubin Total 0.6 mg/dL (0.0-1.0); Blood Urea Nitrogen 39 mg/dL (9-16); Calcium 8.6 mg/dL (8.4-10.2); Carbon Dioxide 23 mmol/L (22-29); Chloride 111 mmol/L (96-108); Creatinine Clr Calc Pharmacy 37.2; Estimated Glomerular Filt Rate > 60; Glucose Random 134 mg/dL (60-115); Potassium 3.8 mmol/L (3.3-5.1); Sodium 147 mmol/L (135-145); Total Protein 6.2 g/dL (6.5-8.0)
[2020-07-03] MEDS: Dextrose 5 % and 0.45 % NaCl 1,000 ML 80 ML IVCONT (13:12)
[2020-07-03] MEDS: amLODIPine Besylate 10 MG TABLET PO (16:59)
[2020-07-03] MEDS: Metoprolol Succinate ER 100 MG TAB.ER.24H PO (16:59)
[2020-07-03] MEDS: cefTRIAXone sodium 1 GM in 0.9 % Sodium Chloride 50 ML IV (17:00)
--- NOTE | 2020-07-03 21:52 | W.PM.IDCN ---
History of Present Illness Data of Consult Service Date: 07/03/20 Requesting physician: [facility] Primary Care Provider: Unknown Physician HPI Reason for consult: hypoxia She presents to hospital with diarrhea and fatigue for two weeks initially on 06/27. She was positive for COVID and had son who had COVID 9 days before. She now has shortness of breath and had hypoxia on admission but then quickly came back to room air and she is not on oxygen when I see her. Review of Systems Review of Systems: Yes all other systems are reviewed and are negative [facility] Past Medical History Medical History Anxiety Dyslipidemia Orthostatic tremor Family History Family History Father HTN (hypertension) Mother HTN (hypertension) Sister Breast cancer Son Bowel cancer Maternal Aunt Multiple sclerosis Paternal Aunt Diabetes mellitus Neuropathy Amputation leg, bilat Family history: reviewed and not pertinent Surgical History Surgical History History of arthroscopy of knee History of breast implant History of cataract surgery History of eye surgery History of hysterectomy History of mastectomy History of parathyroid surgery History of tonsillectomy and adenoidectomy S/P thyroid biopsy Social History Social History Household Members: Family Housing: House Do you presently have visiting nurse or other home services: No Alcohol intake: never Smoking Status: Never smoker Second Hand Smoke Exposure: No Use of substances other than those prescribed or required for medical reasons: No Currently Displaying Signs/Symptoms of Drug Intoxication Withdrawal: No Any prior treatment program specific to substance use: No Advance Directives: No Advance Directives Information Provided: Yes Do you have thoughts of harming others: None Do you have a plan to hurt others: No Plan Recently lost weight without trying: Unsure service: No Current occupational status: retired Meds Allergies Allergy/AdvReac Type Severity Reaction Status Date / Time Sulfa (Sulfonamide Allergy Unknown unknown Verified 06/30/20 17:02 Antibiotics) sulfamethoxazole Allergy Unknown ANGIOEDEMA Verified 06/30/20 17:02 [From BACTRIM] trimethoprim [From BACTRIM] Allergy Unknown ANGIOEDEMA Verified 06/30/20 17:02 Active Medications: Current Medications Generic Name Dose Route Start Last Admin Trade Name Paulq PRN Reason Stop Dose Admin Acetaminophen 650 mg 07/01/20 00:53 Acetaminophen 325 Mg Tablet PO Q6H PRN Pain, Mild (Pain Scale 1-3) Amlodipine Besylate 10 mg 07/01/20 09:00 07/03/20 16:59 Amlodipine Besylate 10 Mg Tablet PO 10 mg DAILY RUBEN Administration Protocol Atorvastatin Calcium 20 mg 07/01/20 21:00 07/03/20 21:50 Atorvastatin Calcium 20 Mg Tablet PO 20 mg BEDTIME RUBEN Administration Clonazepam 0.25 mg 07/01/20 09:00 07/03/20 21:50 Clonazepam 0.5 Mg Tablet PO 0.25 mg BID RUBEN Administration Dexamethasone Sodium Phosphate 6 mg 07/01/20 09:00 07/03/20 10:15 Dexamethasone Sod Phosphate 4 Mg/Ml Vial IVPUSH 6 mg DAILY RUBEN Administration Docusate Sodium 100 mg 07/01/20 00:53 Docusate Sodium 100 Mg Capsule PO DAILY PRN Constipation Heparin Sodium (Porcine) 5,000 unit 07/01/20 02:00 07/03/20 15:07 Heparin Sodium,Porcine 5,000 Unit/Ml Vial SUBCUT 5,000 unit Q12H RUBEN Administration Ceftriaxone Sodium 1 gm/ 50 mls @ 100 mls/hr 07/01/20 18:00 07/03/20 19:36 Sodium Chloride IV Infused Q24H RUBEN Infusion Dextrose/Sodium Chloride 1,000 mls @ 80 mls/hr 07/03/20 12:30 07/03/20 13:12 D51/2ns IVCONT 80 mls/hr .[id number] RUBEN Administration Loperamide HCl 2 mg 07/01/20 01:37 Loperamide Hcl 2 Mg Capsule PO Q8H PRN loose stool Meclizine HCl 25 mg 07/01/20 00:53 Meclizine Hcl 25 Mg Tablet PO DAILY PRN dizziness Metoprolol Succinate 100 mg 07/01/20 09:00 07/03/20 16:59 Metoprolol Succinate Er 100 Mg Tab.Er.24h PO 100 mg DAILY RUBEN Administration Protocol Ondansetron HCl 4 mg 07/01/20 00:53 07/03/20 10:29 Ondansetron Hcl 4 Mg/2 Ml Vial IVPUSH 4 mg Q8H PRN Administration Nausea and Vomiting Sodium Chloride 3 ml 07/01/20 00:53 07/03/20 17:00 0.9 % Sodium Chloride Flush 3 Ml Syringe IVFLUSH 3 ml QSHIFT [facility] Administration Home Medications Medication Instructions Recorded Confirmed Last Taken Type amlodipine 10 mg PO DAILY 06/30/20 06/30/20 Unknown History clonazepam 0.25 mg PO BID 06/30/20 06/30/20 Unknown History metoprolol succinate 100 mg PO DAILY 06/30/20 06/30/20 Unknown History Physical Exam Vital Signs: Vital Signs: Last Vital Signs Temp 97.5 F 07/03/20 19:21 Pulse 84 07/03/20 19: Resp 20 07/03/20 19:21 BP 170/78 H 07/03/20 19: Pulse Ox 91 L 07/03/20 19:21 Body Mass Index 19.2 Const: General: cooperative Orientation/consciousness: patient oriented x3 HENMT: Head: Yes normal to inspection Mouth: Normal oral and palatal mucosa present Resp: Effort & Inspection: normal respiratory effort Cardio: Rate: regular rate Rhythm: regular rhythm GI: Palpation (GI): nontender Skin: General skin exam: no rashes or lesions noted Neuro: General: patient oriented x3 Results Labs CBC & Chem 7: 07/03/20 11:41 07/03/20 11:41 Labs: Short CBC 07/03/20 Range/Units 11:41 WBC 13.3 H (4.8-10.8) X10*3/uL Hgb 14.2 (12.0-16.0) g/dl Hct 42.2 (37-47) % Plt Count 268 (160-400) X10*3/uL BMP 07/03/20 11:41 Sodium 147 H Potassium 3.8 Chloride 111 H Carbon Dioxide 23 BUN 39 H Creatinine 0.83 Calcium 8.6 Liver Function 07/03/20 Range/Units 11:41 Total Bilirubin 0.6 (0.0-1.0) mg/dL Direct Bilirubin 0.2 (0.0-0.5) mg/dL AST 36 H (5-31) U/L ALT 21 (0-31) U/L Alkaline Phosphatase 56 (39-117) U/L Albumin 3.3 L (3.5-5.0) g/dL Microbiology Microbiology Results: Microbiology 06/30/20 18:01 Blood - Venous Blood Culture - Preliminary No growth after 48 hours. 06/30/20 17:27 Blood - Venous Blood Culture - Preliminary No growth after 48 hours. Assessment and Plan (1) Pneumonia due to COVID-19 virus: Problem details: She has had symptoms for fourteen days or more She has intermittent hypoxia but is on room air when I see her She has no signs of secondary infection Status: Acute Would continue Dexamethasone No Remdesivir due to duration of illness Prognosis guarded due to age/underlying health status. (2) Acute respiratory failure with hypoxia: Status: Acute
[2020-07-04] VITALS (8 sets, daily range): BP systolic 148–197; BP diastolic 64–86; PULSE 70–89; RESP 18–22; TEMP 36.3–37; O2SAT 89–94
[2020-07-04] MEDS: 0.9 % Sodium Chloride Flush 3 ML SYRINGE IVFLUSH ×2 (00:03→09:11)
[2020-07-04 00:43] LABS: Anion Gap 13 (12-20); Blood Urea Nitrogen 32 mg/dL (9-16); Calcium 8.2 mg/dL (8.4-10.2); Carbon Dioxide 24 mmol/L (22-29); Chloride 113 mmol/L (96-108); Creatinine Clr Calc Pharmacy 38.2; Estimated Glomerular Filt Rate > 60; Glucose Random 186 mg/dL (60-115); Magnesium 1.9 mg/dL (1.6-2.6); Potassium 3.4 mmol/L (3.3-5.1); Sodium 147 mmol/L (135-145)
[2020-07-04] MEDS: Dextrose 5 % and 0.45 % NaCl 1,000 ML 80 ML IVCONT (02:33)
[2020-07-04] MEDS: Heparin Sodium,Porcine 5,000 UNIT/ML VIAL 5000 UNIT SUBCUT ×2 (02:42→15:03)
[2020-07-04] MEDS: dexAMETHasone sod phosphate 4 MG/ML VIAL 6 MG IVPUSH (09:10)
[2020-07-04] MEDS: Metoprolol Succinate ER 100 MG TAB.ER.24H PO (09:11)
[2020-07-04] MEDS: clonazePAM 0.5 MG TABLET 0.25 MG PO (09:11)
[2020-07-04] MEDS: amLODIPine Besylate 10 MG TABLET PO (09:11)
--- NOTE | 2020-07-04 10:07 | P.PNIM_ITS ---
Subjective Subjective Date of Service: 07/04/20 <FRED Mohr - Last Filed: 07/04/20 10:27> 07/04/20 <Miguel Ángel Park MD - Last Filed: 07/04/20 13:04> Interval History: follow up covid/hypoxia/encephalopathy Sleepy and confused again this morning Not opening eyes, only answering some questions. Has been intermittently refusing medication Nurse reported run of vtach overnight, reviewed tele-does not appear to be vtach <FRED Morh - Last Filed: 07/04/20 10:27> Review of Systems Review of Systems: Yes Unobtainable due to mental condition <FRED Mohr Last Filed: 07/04/20 10:27> Neurologic Neurologic: Reports confusion <FRED Mohr - Last Filed: 07/04/20 10:27> Psychiatric Psychiatric: Reports confusion <FRED Mohr - Last Filed: 07/04/20 10:27> Physical Exam Vital Signs: Vital Signs: Last Vital Signs Temp 97.4 F 07/04/20 08:00 Pulse 83 07/04/20 09:22 Resp 20 07/04/20 08:00 BP 154/81 H 07/04/20 09:22 Pulse Ox 91 L 07/04/20 08:00 Body Mass Index 19.2 <FRED Mohr - Last Filed: 07/04/20 10:27> Const: Other: lying in bed, won't open eyes, answering questions intermitt ently, but doesn't know where she is or the year. <FRED Mohr - Last Filed: 07/04/20 10:27> General: confusion <FRED Mohr Last Filed: 07/04/20 10:27> Orientation/consciousness: confusion <FRED Mohr Last Filed: 07/04/20 10:27> Chest: Chest palpation & inspection: normal inspection of the chest <FRED Mohr Last Filed: 07/04/20 10:27> Resp: Effort & Inspection: normal respiratory effort and no use of accessory muscles <FRED Mohr Last Filed: 07/04/20 10:27> GI: Other: abdomen soft, non-distended <FRED Mohr - Last Filed: 07/04/20 10:27> Neuro: General: confusion <FRED Mohr - Last Filed: 07/04/20 10:27> Extrem: Other: no edema <FRED Mohr - Last Filed: 07/04/20 10:27> Objective Data Current Medications Generic Name Dose Route Start Last Admin Trade Name Freq PRN Reason Stop Dose Admin Acetaminophen 650 mg 07/01/20 00:53 Acetaminophen 325 Mg Tablet PO Q6H PRN Pain, Mild (Pain Scale 1-3) Amlodipine Besylate 10 mg 07/01/20 09:00 07/04/20 09:11 Amlodipine Besylate 10 Mg Tablet PO 10 mg DAILY RUBEN Administration Protocol Atorvastatin Calcium 20 mg 07/01/20 21:00 07/04/20 00:42 Atorvastatin Calcium 20 Mg Tablet PO Not Given BEDTIME RUBEN Clonazepam 0.25 mg 07/01/20 09:00 07/04/20 09:11 Clonazepam 0.5 Mg Tablet PO 0.25 mg BID RUBEN Administration Dexamethasone Sodium Phosphate 6 mg 07/01/20 09:00 07/04/20 09:10 Dexamethasone Sod Phosphate 4 Mg/Ml Vial IVPUSH 6 mg DAILY RUBEN Administration Docusate Sodium 100 mg 07/01/20 00:53 Docusate Sodium 100 Mg Capsule PO DAILY PRN Constipation Heparin Sodium (Porcine) 5,000 unit 07/01/20 02:00 07/04/20 02:42 Heparin Sodium,Porcine 5,000 Unit/Ml Vial SUBCUT 5,000 unit Q12H URBEN Administration Dextrose/Sodium Chloride 1,000 mls @ 80 mls/hr 07/03/20 12:30 07/04/20 02:33 D51/2ns IVCONT 80 mls/hr .[id number] RUBEN Administration Loperamide HCl 2 mg 07/01/20 01:37 Loperamide Hcl 2 Mg Capsule PO Q8H PRN loose stool Meclizine HCl 25 mg 07/01/20 00:53 Meclizine Hcl 25 Mg Tablet PO DAILY PRN dizziness Metoprolol Succinate 100 mg 07/01/20 09:00 07/04/20 09:11 Metoprolol Succinate Er 100 Mg Tab.Er.24h PO 100 mg DAILY RUBEN Administration Protocol Ondansetron HCl 4 mg 07/01/20 00:53 07/03/20 10:29 Ondansetron Hcl 4 Mg/2 Ml Vial IVPUSH 4 mg Q8H PRN Administration Nausea and Vomiting Sodium Chloride 3 ml 07/01/20 00:53 07/04/20 09:11 0.9 % Sodium Chloride Flush 3 Ml Syringe IVFLUSH 3 ml QSHIFT RUBEN Administration <FRED Mohr - Last Filed: 07/04/20 10:27> Labs CBC & Chem 7: : 07/03/20 11:41 07/04/20 11:00 <FRED Mohr - Last Filed: 07/04/20 10:27> Microbiology Microbiology Results: Microbiology 06/30/20 18:01 Blood - Venous Blood Culture - Preliminary No growth after 48 hours. 06/30/20 17:27 Blood - Venous Blood Culture - Preliminary No growth after 48 hours. <FRED Mohr - Last Filed: 07/04/20 10:27> Assessment and Plan (1) Pneumonia due to COVID-19 virus: Status: Acute <FRED Morh - Last Filed: 07/04/20 10:27> Assessment and Plan: This is an 84-year-old female with past medical history of dementia, anxiety who presents to the hospital with nonspecific complaints. Was recently seen in the hospital on 06/27 and at that time was diagnosed with COVID-19 and UTI. acute toxic encephalopathy vs delirium waxing and waning of mental status, seems to be worse in morning and improves by afternoon - more likely delirium probable underlying dementia exacerbated by covid 19 and hospitalization Mild hypernatremia not likely the cause, treated for UTI, has remained afebrile since admission. BCx negative -brain CT -recheck UA abdominal pain. resolved benign abdominal exam CT scan/lfts wnl HTN Bp elevated, pt refusing po meds -continue Norvasc, metoprolol if able otherwise may need to transition to IV acute hypoxic respiratory failure. now on room air covid 19 pneumonia (tested + 06/27) viral sepsis - Decadron 6mg/daily day 4 - Seen by ID, not a candidate for remdecivir Elevated troponin denies chest pain. likely secondary to hypoxia seen by cardiology. no further work up required at this time UTI present on admission dx 06/27. UCx growing bello sensitive e.coli Completed ABX HLD continue statin Growth on gums. Present for 1 year according to daughter. will require outpatient ENT follow up Left leg pain. chronic, pt wears brace for ambulation and follows with ortho dvt ppx heparin code status - full code. This was discussed with daughter Susie who talked with all of her siblings and the decision was made to keep her full code at this time disposition - to SNF when medically ready, PT eval pending Attending- Dr. Park <FRED Mohr - Last Filed: 07/04/20 10:27> (2) Acute respiratory failure with hypoxia: Status: Acute <FRED Mohr - Last Filed: 07/04/20 10:27> Assessment and Plan: I saw and examined the patient and participated in the lutz portion of the E/M service. I agree with the management by PA. She seems more confused this morning as she did yesterday mornging and seem much better in the afternoon. Oxygen level is droping, we did CT of head yesterday with no acute finding. Sodium is a tad low at 146. She no localized neuro finding. She appear to be having delirium that is is situational, correct sodium with D5W. Will update family again. She reamins full code but this should be revisited. Otherwise, I agree with assesment, exam and management by PA. <Miguel Ángel Park MD - Last Filed: 07/04/20 13:04>
[2020-07-04 11:50] LABS: Anion Gap 11 (12-20); Blood Urea Nitrogen 27 mg/dL (9-16); Calcium 8.2 mg/dL (8.4-10.2); Carbon Dioxide 24 mmol/L (22-29); Chloride 114 mmol/L (96-108); Creatinine Clr Calc Pharmacy 40.1; Estimated Glomerular Filt Rate > 60; Glucose Random 149 mg/dL (60-115); Potassium 3.4 mmol/L (3.3-5.1); Sodium 146 mmol/L (135-145)
[2020-07-04] MEDS: Dextrose 5 % 1,000 ML 80 ML IVCONT (15:01)
[2020-07-04] MEDS: Atorvastatin Calcium 20 MG TABLET PO (20:02)
[2020-07-04 23:01] LABS: Appearance Urine CLEAR; Color Urine YELLOW; Glucose Urine UA NEG (NEG); Leukocyte Esterase Urine NEG (NEG); Nitrite Urine POS (NEG); Specific Gravity - Urine 1.025 (1.005-1.025); UACC Culture Trigger YES; Urine Blood TRACE (NEG); Urine Ketones NEG (NEG); Urine Protein NEG (NEG-TRACE)
[2020-07-04 23:09] LABS: Bacteria Urine 2+ /LPF; RBC Urine 0-2 /HPF (0); UACC CULT YES; Urine Talc Crystals 3+ /LPF; WBC Urine 0 /HPF (0-4)
[2020-07-05] VITALS (8 sets, daily range): BP systolic 135–186; BP diastolic 77–95; PULSE 73–83; RESP 18–20; TEMP 35.7–36.7; O2SAT 89–95
[2020-07-05] MEDS: Heparin Sodium,Porcine 5,000 UNIT/ML VIAL 5000 UNIT SUBCUT ×2 (01:11→14:37)
[2020-07-05] MEDS: Dextrose 5 % 1,000 ML 80 ML IVCONT (04:47)
[2020-07-05 06:19] LABS: Hematocrit 41.5 % (37-47); Hemoglobin 13.7 g/dl (12.0-16.0); Mean Corpuscular Hemoglobin 27.9 pg (27.0-33.0); Mean Corpuscular Volume 84.5 fL (80-98); Mean Platelet Volume 11.3 fL (9.4-12.3); Platelet Count 265 X10*3/uL (160-400); Red Blood Count 4.91 X10*6/uL (4.20-5.50); Red Cell Distribution Width 13.8 % (11.0-16.0); White Blood Count 7.8 X10*3/uL (4.8-10.8)
[2020-07-05 06:45] LABS: Anion Gap 15 (12-20); Blood Urea Nitrogen 24 mg/dL (9-16); Carbon Dioxide 24 mmol/L (22-29); Chloride 113 mmol/L (96-108); Creatinine Clr Calc Pharmacy 41.7; Estimated Glomerular Filt Rate > 60; Glucose Random 145 mg/dL (60-115); Potassium 3.5 mmol/L (3.3-5.1); Sodium 148 mmol/L (135-145)
[2020-07-05] MEDS: 0.9 % Sodium Chloride Flush 3 ML SYRINGE IVFLUSH ×2 (08:23→14:37)
[2020-07-05] MEDS: Metoprolol Succinate ER 100 MG TAB.ER.24H PO (08:23)
[2020-07-05] MEDS: dexAMETHasone sod phosphate 4 MG/ML VIAL 6 MG IVPUSH (08:23)
[2020-07-05] MEDS: amLODIPine Besylate 10 MG TABLET PO (08:23)
--- NOTE | 2020-07-05 11:23 | HO.PM.IMPN ---
Subjective Subjective Date of Service: 07/05/20 <Madhavi Collier NP - Last Filed: 07/05/20 11:45> 07/05/20 <Clay Thakur MD - Last Filed: 07/05/20 16:46> Interval History: Follow up UTI, encephalopathy, covid. Still confused, unable to give history <Madhavi Collier NP - Last Filed: 07/05/20 11:45> Physical Exam Vital Signs: Vital Signs: Last Vital Signs Temp 97.8 F 07/05/20 10:47 Pulse 81 07/05/20 10:47 Resp 20 07/05/20 10:47 BP 135/84 07/05/20 10:47 Pulse Ox 91 L 07/05/20 10:47 Body Mass Index 19.2 <Madhavi Collier NP - Last Filed: 07/05/20 11:45> Appearing in no acute distress lung sounds are clear to auscultation heart regular rate rhythm, clear S1, S2 positive bowel sounds, abdomen is soft, nontender neuro patient is alert, confused <Madhavi Collier NP - Last Filed: 07/05/20 11:45> Objective Data Current Medications Generic Name Dose Route Start Last Admin Trade Name Freq PRN Reason Stop Dose Admin Acetaminophen 650 mg 07/01/20 00:53 Acetaminophen 325 Mg Tablet PO Q6H PRN Pain, Mild (Pain Scale 1-3) Amlodipine Besylate 10 mg 07/01/20 09:00 07/05/20 08:23 Amlodipine Besylate 10 Mg Tablet PO 10 mg DAILY RUBEN Administration Protocol Atorvastatin Calcium 20 mg 07/01/20 21:00 07/04/20 20:02 Atorvastatin Calcium 20 Mg Tablet PO 20 mg BEDTIME RUBEN Administration Dexamethasone Sodium Phosphate 6 mg 07/01/20 09:00 07/05/20 08:23 Dexamethasone Sod Phosphate 4 Mg/Ml Vial IVPUSH 6 mg DAILY RUBEN Administration Docusate Sodium 100 mg 07/01/20 00:53 Docusate Sodium 100 Mg Capsule PO DAILY PRN Constipation Heparin Sodium (Porcine) 5,000 unit 07/01/20 02:00 07/05/20 01:11 Heparin Sodium,Porcine 5,000 Unit/Ml Vial SUBCUT 5,000 unit Q12H RUBEN Administration Dextrose 1,000 mls @ 100 mls/hr 07/04/20 13:15 07/05/20 09:21 D5w IVCONT 100 mls/hr .Q10H RUBEN Infusion Loperamide HCl 2 mg 07/01/20 01:37 Loperamide Hcl 2 Mg Capsule PO Q8H PRN loose stool Meclizine HCl 25 mg 07/01/20 00:53 Meclizine Hcl 25 Mg Tablet PO DAILY PRN dizziness Metoprolol Succinate 100 mg 07/01/20 09:00 07/05/20 08:23 Metoprolol Succinate Er 100 Mg Tab.Er.24h PO 100 mg DAILY RUBEN Administration Protocol Ondansetron HCl 4 mg 07/01/20 00:53 07/03/20 10:29 Ondansetron Hcl 4 Mg/2 Ml Vial IVPUSH 4 mg Q8H PRN Administration Nausea and Vomiting Sodium Chloride 3 ml 07/01/20 00:53 07/05/20 08:23 0.9 % Sodium Chloride Flush 3 Ml Syringe IVFLUSH 3 ml QSHIFT RUBEN Administration <Madhavi Collier NP - Last Filed: 07/05/20 11:45> Labs CBC & Chem 7: : 07/05/20 05:34 07/05/20 05:34 <Madhavi Collier NP - Last Filed: 07/05/20 11:45> Microbiology Microbiology Results: Microbiology 07/04/20 23:03 Urine clean catch - Clean Catch Midstream Urine Culture - Preliminary No growth to date. 06/30/20 18:01 Blood - Venous Blood Culture - Preliminary No growth after 48 hours. 06/30/20 17:27 Blood - Venous Blood Culture - Preliminary No growth after 48 hours. <Madhavi Collier NP - Last Filed: 07/05/20 11:45> Assessment and Plan (1) Pneumonia due to COVID-19 virus: Status: Acute <Madhavi Collier NP - Last Filed: 07/05/20 11:45> Assessment and Plan: This is an 84-year-old female with past medical history of dementia, anxiety who presents to the hospital with nonspecific complaints. Was recently seen in the hospital on 06/27 and at that time was diagnosed with COVID-19 and UTI. Acute toxic encephalopathy vs delirium waxing and waning of mental status, seems to be worse in morning and improves by afternoon - more likely delirium probable underlying dementia exacerbated by covid 19 and hospitalization Mild hypernatremia not likely the cause, treated for UTI, has remained afebrile since admission. BCx negative -brain CT no evidence of acute intracranial hemorrhage or edematous territorial infarction. UTI-Present on admission dx 06/27. started on ceftin 06/28. admitted and started on Ropcephin 06/30. UCx growing bello sensitive e.coli u/a from 07/04 still with bacteria and nitrates -Continue Rocephin Abdominal pain. resolved benign abdominal exam CT scan/lfts wnl HTN. Better control -continue Norvasc, metoprolol Acute hypoxic respiratory failure. now on room air covid 19 pneumonia (tested + 06/27) viral sepsis - Decadron 6mg/daily day 5 - Seen by ID, not a candidate for remdecivir Elevated troponin. Denies chest pain. likely secondary to hypoxia. seen by cardiology. no further work up required at this time HLD -continue statin Growth on gums. Present for 1 year according to daughter. will require outpatient ENT follow up Left leg pain. chronic, pt wears brace for ambulation and follows with ortho Attending: Dr. Thakur. <Madhavi Collier NP - Last Filed: 07/05/20 11:45> (2) Hypoxia: Status: Acute <Madhavi Collier NP - Last Filed: 07/05/20 11:45> Assessment and Plan: Attending Attestation: Patient seen and examined independently and I was present during lutz portion of E/M service. Agree with Jovita Collier NP's history, physical, assessment, and plan. Seen and examined. Appears comfortable but confused. Oxygen requirements waxing and waning. Was on RA this AM, but O2 saturation dropped to 89% on RA this afternoon. Continue O2 to maintain saturation above 90. Supsect she will ultimately need transition to short term rehab, once Oxygen requirements are stable for at least 24 hours. <Clay Thakur MD - Last Filed: 07/05/20 16:46>
[2020-07-05] MEDS: cefTRIAXone sodium 1 GM in 0.9 % Sodium Chloride 50 ML IV (12:05)
[2020-07-05 12:27] LABS: Potassium Urine Random 24.2 mmol/L
[2020-07-05 12:38] LABS: Osmolality Urine 639 mosm/kg (373-1093)
--- NOTE | 2020-07-05 14:01 | MHC.CM.PN ---
PT is recommending STR, spoke with dtr/HCP Susie who would like a referral to [address] [place] [address], referral sent. Patient will need BLS transportation. CM will continue to follow patient for discharge needs. Patient was able to understand and sign mic Richards as HCP with 2 witnesses.
[2020-07-05] MEDS: Dextrose 5 % 1,000 ML 100 ML IVCONT (14:37)
[2020-07-05] MEDS: Atorvastatin Calcium 20 MG TABLET PO (20:29)
[2020-07-06] VITALS: BP 163/62; PULSE 104; RESP 20; TEMP 37; O2SAT 94
[2020-07-06] MEDS: Dextrose 5 % 1,000 ML 100 ML IVCONT (00:09)
[2020-07-06] MEDS: Heparin Sodium,Porcine 5,000 UNIT/ML VIAL 5000 UNIT SUBCUT ×2 (01:37→14:15)
[2020-07-06 04:00] VITALS: BP 175/83; PULSE 82; RESP 18; TEMP 36.6; O2SAT 95
[2020-07-06 06:41] LABS: Anion Gap 16 (12-20); Blood Urea Nitrogen 18 mg/dL (9-16); Calcium 7.9 mg/dL (8.4-10.2); Carbon Dioxide 22 mmol/L (22-29); Chloride 107 mmol/L (96-108); Creatinine Clr Calc Pharmacy 44.1; Estimated Glomerular Filt Rate > 60; Glucose Random 150 mg/dL (60-115); Potassium 3.5 mmol/L (3.3-5.1); Sodium 141 mmol/L (135-145)
[2020-07-06 07:49] VITALS: BP 175/81; PULSE 75; RESP 20; TEMP 36.7; O2SAT 95
[2020-07-06] MEDS: 0.9 % Sodium Chloride Flush 3 ML SYRINGE IVFLUSH (09:31)
[2020-07-06] MEDS: dexAMETHasone sod phosphate 4 MG/ML VIAL 6 MG IVPUSH (09:31)
--- NOTE | 2020-07-06 10:17 | MHC.CM.PN ---
CM spoke with patient's dtr/HCP Susie patient is ready today but [address] [place] [address] is not able to accept patient r/t dx of COVID. Next choice is [facility], referral sent via [facility]. CM will continue to follow patient for discharge needs.
--- NOTE | 2020-07-06 10:44 | P.DS_ITS ---
DS: Providers Provider Date of Service: 07/07/20 Date of admission: 06/30/20 23:22 Date of discharge: 07/06/20 Primary care physician: Unknown Physician Admitting clinician: Rose Cabrera Attending physician on admission: Rose Cabrera Consults: 07/01/20 11:57 Consult to Infectious Diseases Routine Consulting Provider: Janny Almodovar Reason for consultation: covid 19 Has provider been notified: No 07/01/20 14:42 Consult to Cardiology Routine Consulting Provider: Pio Ledesma Reason for consultation: elevated troponin Has provider been notified: No Attending physician on discharge: Clay Thakur Discharging clinician: Madhavi Collier DS: Diagnosis Discharge Diagnosis (1) COVID-19: Status: Acute (2) Acute respiratory failure with hypoxia: Status: Acute (3) Toxic encephalopathy: Status: Inactive DS: Medications Discharge Medications Home Medications: Home Medications Medication Instructions Recorded Confirmed amlodipine 10 mg PO DAILY 06/30/20 06/30/20 clonazepam 0.25 mg PO BID 06/30/20 06/30/20 metoprolol succinate 100 mg PO DAILY 06/30/20 06/30/20 Previous Rx's Medication Instructions Recorded simvastatin 40 mg tablet 40 mg PO BEDTIME #30 tab 06/15/20 meclizine 25 mg tablet 25 mg PO DAILY PRN #30 tab 06/21/20 cefuroxime axetil 500 mg PO BID 10 Days #20 tab 06/27/20 loperamide [Imodium A-D] 2 mg PO Q8H PRN #20 tab 06/27/20 DS: Summary Hospital Course Hospital Course: HP as per admitting provider [age] year old female with history of hypertension, anxiety who was initially seen in the ED on 06/27 for weakness and at that time was diagnosed with COVID and UTI discharged home on Ceftin presents to the hospital again with multiple complaints including fever, left ear pain doing better PCP sent her here. When I interviewed the patient she is only oriented to self but not to time or place. She does not know why she is in the hospital. She is awake alert but not oriented. She denies headache, reports shortness of breath with cough, denies any chest pain, no abdominal pain nausea or vomiting, no diarrhea constipation, no urinary symptoms and no lower extremity edema. To the ED patient had a temp of 101.4?, heart rate of 89, respiratory rate of 16, blood pressure 186/74, satting 85% on room air. Currently on 3 L of oxygen satting 100%. Labs on arrival significant for WBC count of 3.5, PTT of 40.9, INR of 1.1, D- dimer of 730, sodium of 137, potassium 3.7, BUN of 30, creatinine of 0.92, LDH of 303, UA negative, COVID-[address] angiogram reveals no PE, lung finding consistent with COVID pneumonia . COVID-19, acute hypoxic respiratory failure. Initially presented with fever. She also had some confusion. Lung findings consistent with COVID pneumonia. She was hypoxic and required at least 3 L of oxygen. She was started on Decadron, but did not require room does severe as patient had symptoms for more than 14 days. Oxygen requirements are zero at this time. She is safe for discharge to short-term rehab. Toxic encephalopathy. Multifactorial related to COVID-19, urinary tract infection. Patient's family did state that her mental status has been declining for some time now. Likely also some delirium from hospitalization. Was able to sign for her healthcare proxy yesterday and seems to be more communicative today. Urinary tract infection. Diagnosed on 06/27, treated Ceftin. Presented again to the ER with fever as per PCP. She was started on Ceftin on 06/28 and then subsequently admitted on 06/30 with symptoms of COVID-19 And started on Rocephin for pansensitive E coli with positive UA. She received a total of 2 days of oral Ceftin and 5 days of IV Rocephin. Attending: Dr. Thakur Time Spent with Patient Time attestation: Total time spent providing and/or coordinating discharge services: Discharge coordination time: Greater than 30 minutes Physical Exam Vital Signs: Vital Signs: Last Vital Signs Temp 98.0 F 07/06/20 07:49 Pulse 75 07/06/20 07:49 Resp 20 07/06/20 07:49 BP 175/81 H 07/06/20 07:49 Pulse Ox 95 07/06/20 07:49 Body Mass Index 19.2 Appearing in no acute distress head is normocephalic atraumatic eyes pupils are PERRLA sclera is anicteric mouth throat mucous membranes are intact and moist neck is supple no lymphadenopathy, no JVD noted lung sounds are clear to auscultation heart regular rate rhythm, clear S1, S2 positive bowel sounds, abdomen is soft, nontender neuro patient is alert, oriented to self DS: Data Data Completed and Pending Labs on day of discharge: Laboratory Results - last 24 hr 07/05/20 07/05/20 07/06/20 11:20 11:20 05:48 Sodium 141 Potassium 3.5 Chloride 107 Carbon Dioxide 22 Anion Gap 16 BUN 18 H Creatinine 0.70 Estim Creat Clear Calc 44.1 Estimated GFR > 60 Random Glucose 150 H Calcium 7.9 L Urine Osmolality 639 Ur Random Sodium 91.0 Ur Random Potassium 24.2 Preliminary micro results at discharge 07/04/20 23:03 Urine Culture - Preliminary Urine clean catch - Clean Catch Midstream Yeast Discharge Plan Discharge Anticipated Discharge Date/Time: 07/06/20 10:27 Patient Disposition: Xfer Inpatient Rehab Fac Discharge Diagnosis: COVID-19 Acute hypoxic respiratory failure Toxic encephalopathy Referrals: [facility] [Outside] - 1 Week Marsha Peña MD [Physician] - 1 Week Physician,Unknown [Primary Care Provider] - 1 Week Discharge Medications: Continued simvastatin 40 mg tablet 40 mg PO BEDTIME Qty: 30 RF: 1 meclizine 25 mg tablet 25 mg PO DAILY PRN (Reason: dizziness) Qty: 30 RF: 0 loperamide [Imodium A-D] 2 mg tablet 2 mg PO Q8H PRN (Reason: loose stool) Qty: 20 RF: 0 metoprolol succinate 100 mg Tablet Extended Release 24 Hr 100 mg PO DAILY RF: 0 amlodipine 10 mg Tablet 10 mg PO DAILY RF: 0 clonazepam 0.25 mg Tablet,Disintegrating 0.25 mg PO BID RF: 0 Discontinued cefuroxime axetil 500 mg tablet 500 mg PO BID 10 Days Qty: 20 RF: 0 Discharge Orders: Discharge Order (Routine); Ordered 07/06/20 Ordered By: Madhavi Collier Diet: advance to usual diet Activity on Discharge: As tolerated Stand Alone Forms: Patient Portal Discharge page Care Plan Goals: Quarantine: According to the Centers for disease control. Persons with COVID-19 who have symptoms and were directed to care for themselves at home may discontinue isolation under the following conditions: -At least 10 days have passed since symptom onset and -At least 24 hours have passed since resolution of fever without the use of fever-reducing medications and -Other symptoms have improved. Safety: Wear a mask Wash your hands or use hand mother helper before putting on your mask. Wear your mask over your nose and mouth and secure it under your chin. Stay 6 feet away from others Inside your home: Avoid close contact with people who are sick. If possible, maintain 6 feet between the person who is sick and other household members. Outside your home: Put 6 feet of distance between yourself and people who don't live in your household. Remember that some people without symptoms may be able to spread virus. Stay at least 6 feet (about 2 arm lengths) from other people. Keeping distance from others is especially important for people who are at higher risk of getting very sick. Avoid crowds and poorly ventilated spaces Avoid indoor spaces that do not offer fresh air from the outdoors as much as possible. Wash your hands often with soap and water for at least 20 seconds especially after you have been in a public place, or after blowing your nose, coughing, or sneezing. Cover coughs and sneezes Clean high touch surfaces daily. Be alert for symptoms. Watch for fever, cough, shortness of breath, or other symptoms of COVID-19. Follow CDC guidance if symptoms develop. Health Concerns: COVID-19 Acute hypoxic respiratory failure Toxic encephalopathy Urinary tract infection Plan of Treatment: Follow up with primary care provider after short term rehabilitation. Assessment: See Discharge Summary Discharge Date/Time: 07/06/20 16:30
[2020-07-06 11:04] VITALS: BP 156/69; PULSE 78; RESP 20; TEMP 36.7; O2SAT 94
--- NOTE | 2020-07-06 11:09 | HO.PM.IMPN ---
Subjective Subjective Date of Service: 07/06/20 <Madhavi Collier NP - Last Filed: 07/06/20 11:12> 07/07/20 <Clay Thakur MD - Last Filed: 07/07/20 14:48> Interval History: Follow up UTI, encephalopathy, covid. Still confused, unable to give history <Madhavi Collier NP - Last Filed: 07/06/20 11:12> Physical Exam Vital Signs: Vital Signs: Last Vital Signs Temp 98.1 F 07/06/20 11:04 Pulse 78 07/06/20 11:04 Resp 20 07/06/20 11:04 BP 156/69 H 07/06/20 11:04 Pulse Ox 94 07/06/20 11:04 Body Mass Index 19.2 <Madhavi Collier NP - Last Filed: 07/06/20 11:12> Appearing in no acute distress lung sounds are clear to auscultation heart regular rate rhythm, clear S1, S2 positive bowel sounds, abdomen is soft, nontender neuro patient is alert to self <Madhavi Collier NP - Last Filed: 07/06/20 11:12> Objective Data Current Medications Generic Name Dose Route Start Last Admin Trade Name Freq PRN Reason Stop Dose Admin Acetaminophen 650 mg 07/01/20 00:53 Acetaminophen 325 Mg Tablet PO Q6H PRN Pain, Mild (Pain Scale 1-3) Amlodipine Besylate 10 mg 07/01/20 09:00 07/06/20 09:31 Amlodipine Besylate 10 Mg Tablet PO Not Given DAILY RUBEN Protocol Atorvastatin Calcium 20 mg 07/01/20 21:00 07/05/20 20:29 Atorvastatin Calcium 20 Mg Tablet PO 20 mg BEDTIME RUBEN Administration Dexamethasone Sodium Phosphate 6 mg 07/01/20 09:00 07/06/20 09:31 Dexamethasone Sod Phosphate 4 Mg/Ml Vial IVPUSH 6 mg DAILY RUBEN Administration Docusate Sodium 100 mg 07/01/20 00:53 Docusate Sodium 100 Mg Capsule PO DAILY PRN Constipation Heparin Sodium (Porcine) 5,000 unit 07/01/20 02:00 07/06/20 01:37 Heparin Sodium,Porcine 5,000 Unit/Ml Vial SUBCUT 5,000 unit Q12H RUBEN Administration Ceftriaxone Sodium 1 gm/ 50 mls @ 100 mls/hr 07/05/20 12:00 07/05/20 12:38 Sodium Chloride IV Infused Q24H RUBEN Infusion Loperamide HCl 2 mg 07/01/20 01:37 Loperamide Hcl 2 Mg Capsule PO Q8H PRN loose stool Meclizine HCl 25 mg 07/01/20 00:53 Meclizine Hcl 25 Mg Tablet PO DAILY PRN dizziness Metoprolol Succinate 100 mg 07/01/20 09:00 07/06/20 09:31 Metoprolol Succinate Er 100 Mg Tab.Er.24h PO Not Given DAILY RUBEN Protocol Ondansetron HCl 4 mg 07/01/20 00:53 07/03/20 10:29 Ondansetron Hcl 4 Mg/2 Ml Vial IVPUSH 4 mg Q8H PRN Administration Nausea and Vomiting Sodium Chloride 3 ml 07/01/20 00:53 07/06/20 09:31 0.9 % Sodium Chloride Flush 3 Ml Syringe IVFLUSH 3 ml QSHIFT RUBEN Administration <Madhavi Collier NP - Last Filed: 07/06/20 11:12> Labs CBC & Chem 7: : 07/05/20 05:34 07/06/20 05:48 <Madhavi Collier NP - Last Filed: 07/06/20 11:12> Microbiology Microbiology Results: Microbiology 07/04/20 23:03 Urine clean catch - Clean Catch Midstream Urine Culture - Preliminary Yeast 06/30/20 18:01 Blood - Venous Blood Culture - Final No growth after 5 days. 06/30/20 17:27 Blood - Venous Blood Culture - Final No growth after 5 days. <Madhavi Collier NP - Last Filed: 07/06/20 11:12> Assessment and Plan (1) COVID-19: Status: Acute <Madhavi Collier NP - Last Filed: 07/06/20 11:12> (2) Acute respiratory failure with hypoxia: Status: Acute <Madhavi Collier NP - Last Filed: 07/06/20 11:12> (3) Toxic encephalopathy: Status: Inactive <Madhavi Collier NP - Last Filed: 07/06/20 11:12> Assessment and Plan: This is an 84-year-old female with past medical history of dementia, anxiety who presents to the hospital with nonspecific complaints. Was recently seen in the hospital on 06/27 and at that time was diagnosed with COVID-19 and UTI. Acute toxic encephalopathy vs delirium waxing and waning of mental status, seems to be worse in morning and improves by afternoon - more likely delirium probable underlying dementia exacerbated by covid 19 and hospitalization -brain CT no evidence of acute intracranial hemorrhage or edematous territorial infarction. UTI-Present on admission dx 06/27. started on ceftin 06/28 and received 2 days of treatment. Admitted and started on Ropcephin 06/30. UCx growing bello sensitive e.coli u/a from 07/04 still with bacteria and nitrates -Continue Rocephin, stop on discharge as patient has received total of 5 days. -Yeast in the urine, asymptomatic no need to treat Abdominal pain. resolved benign abdominal exam CT scan/lfts wnl HTN. Better control -continue Norvasc, metoprolol Acute hypoxic respiratory failure. now on room air covid 19 pneumonia (tested + 06/27) viral sepsis - Decadron completed - Seen by ID, not a candidate for remdecivir Elevated troponin. Denies chest pain. likely secondary to hypoxia. seen by cardiology. no further work up required at this time HLD -continue statin Growth on gums. Present for 1 year according to daughter. will require outpatient ENT follow up Left leg pain. chronic, pt wears brace for ambulation and follows with ortho Attending: Dr. Thakur. <Madhavi Collier NP - Last Filed: 07/06/20 11:12>
[2020-07-06 11:22] VITALS: BMI 19.2
--- NOTE | 2020-07-06 11:26 | MHC.CLN ---
PT IS AT NUTRITION RISK R/T POOR PO AND STAGE 1 PRESSURE INJURY WITH LOW RYLEY SCORE DIET RX; REGULAR-APPROPRIATE RECOMMEND ADDING ENSURE BID TO INCREASE PO SUPPLEMENT TO PROVIDE 700KCALS, 40G PROTEIN SEE CLINICAL NUTRITION ASSESSMENT
[2020-07-06] MEDS: cefTRIAXone sodium 1 GM in 0.9 % Sodium Chloride 50 ML IV (11:39)
--- NOTE | 2020-07-06 15:04 | MHC.CM.PN ---
Patient will be discharged today to [facility] today at 4pm via BLS transport. Nurse and dtr Susie lunsford.
== END 2020-07-06 16:30 | DRG 871 ==
LOC: HO.ED 16:45 → HO.EDOVER 23:49 → HO.IMC 07-01 17:19
PROVIDERS: Nurse Practitioner Acute Care; Physician Assistant Medical; Admitting Provider Internal Medicine; Emergency Provider Internal Medicine; PCP Internal Medicine; Visit Provider Family Medicine
DX: A41.89 Other specified sepsis (principal); U07.1 COVID-19; J96.01 Acute respiratory failure with hypoxia; J12.82 Pneumonia due to coronavirus disease 2019; G92 Toxic encephalopathy; N39.0 Urinary tract infection, site not specified; F05 Delirium due to known physiological condition; D37.09 Neoplasm of uncertain behavior of other specified sites of the oral cavity; M79.605 Pain in left leg; G89.29 Other chronic pain; B96.20 Unspecified Escherichia coli [E. coli] as the cause of diseases classified elsewhere; I25.2 Old myocardial infarction; F41.9 Anxiety disorder, unspecified; E78.5 Hyperlipidemia, unspecified; Z88.2 Allergy status to sulfonamides; Z79.899 Other long term (current) drug therapy
CPT/HCPCS: 36415; 70450; 71045; 71275; 74176; 80048; 80076; 81001; 81003; 83605; 83615; 83690; 83735; 83935; 84133; 84300; 84484; 85025; 85027; 85379; 85610; 85730; 87040; 87086; 87088; 87186; 87635; 93005; 96365; 96375; 97163; 99284; 99285; J0696; J1100; J2405; J3475; Q9967